=== PATIENT | female | born 1990 | race Caucasian/White ===

== ENCOUNTER 2020-10-08 08:51 | Outpatient (REF) | payer OTHER, SELFPAY | END 2020-10-08 08:52 | disposition home or self-care (01) | LOC: HO.LAB 08:51 | PROVIDERS: Visit Provider Internal Medicine | DX: Z20.828 Contact with and (suspected) exposure to other viral communicable diseases (principal) | CPT/HCPCS: C9803; U0003 ==

== ENCOUNTER 2020-11-12 15:59 | Emergency (ER) | payer OTHER, SELFPAY ==
--- NOTE | 2020-11-12 16:49 | XR_ITS ---
EXAMINATION: XR WRIST, RIGHT CLINICAL INFORMATION: Pain, fall COMPARISON: None TECHNIQUE: 4 views submitted of the right wrist. FINDINGS: No fracture or dislocation. XR/XR wrist RT min 3V IMPRESSION: No fracture or dislocation right wrist.
[2020-11-12 16:51] VITALS: BP 126/76; PULSE 86; RESP 14; TEMP 37.2; O2SAT 97; BMI 28.3
--- NOTE | 2020-11-12 17:00 | ED.EXTPRO ---
HPI - Extremity Problem General Chief complaint: Extremity Injury, Upper Stated complaint: Wrist pain/Fall Time Seen by Provider: 11/12/20 16:57 Source: patient Mode of arrival: ambulatory Limitations: no limitations History of Present Illness HPI Narrative: 30-year-old female with no significant past medical history presents with right wrist pain for approximately 1 week after fall on outstretched arm. She states that she has been using [id number] analgesics but the pain continues. She does not have any concerns regarding range of motion and is able to move all of her fingers without difficulty. Not have any other concerns at this time, does not describe any pain in the elbow or shoulder of the affected arm. MD Complaint: extremity pain and extremity swelling Onset (ago): week(s) (1) Pain Consistency: constant Location: right Severity scale (1-10): 5 Quality: aching Radiation: none Relieving factors: nothing Exacerbating factors: range of motion Associated symptoms: denies other symptoms Related Data Allergies Allergy/AdvReac Type Severity Reaction Status Date / Time banana [BANANA] Allergy Severe ANAPHYLAXIS Unverified 07/08/20 18:20 cantaloupe [CANTALOUPE] Allergy Severe HIVES Unverified 07/08/20 18:20 ketorolac [From TORADOL] Allergy Intermediate HIVES Unverified 07/08/20 18:20 latex [LATEX] Allergy Mild HIVES Unverified 07/08/20 18:20 peach [PEACH] Allergy Mild HIVES Unverified 07/08/20 18:20 plum [PLUM] Allergy Mild HIVES Unverified 07/08/20 18:20 Review of Systems Review of Systems: Constitutional: No Fever, No Chills ENT/Mouth: No Ear Pain, No Hoarseness, No sore throat Eyes: No Eye Pain, No Swelling, No Redness, No Foreign Body Cardiovascular: No Chest Pain, No SOB Respiratory: No Cough, No Dyspnea Gastrointestinal: No Nausea, No Vomiting, No Diarrhea, No abdominal Pain Genitourinary: No Dysuria, No Hematuria Musculoskeletal: positive right wrist pain, No Myalgias, No Joint Swelling Skin: No Skin lacerations, No rash Neuro: No Weakness, No Numbness, No Paresthesias, No Loss of Consciousness, No Dizziness, No Headache Psych: No Anxiety/Panic, No Depression Heme/Lymph: no easy bruising, no Lymphadenopathy Endocrine: No Polyuria, No Polydipsia Yes all other systems are reviewed and are negative FOR[facility]LY [facility] Past Medical History Attestation statement: The following information was validated with the patient. Medical History Asthma Surgical History Previous section Social History Social History Advance Directives: No Advance Directives Information Provided: Yes Physical Exam Vital Signs: Vital Signs: Last Vital Signs Temp 98.9 F 11/12/20 16:51 Pulse 86 11/12/20 16:51 Resp 14 11/12/20 16:51 BP 126/76 11/12/20 16:51 Pulse Ox 97 11/12/20 16:51 Body Mass Index 28.3 Appearance: Alert. Oriented X3. No acute distress. Eyes: Pupils equal, round and reactive to light. ENT: Pharynx normal. Neck: Normal inspection. Neck supple. CVS: Normal heart rate and rhythm. Pulses normal. Respiratory: No respiratory distress. Breath sounds normal. Abdomen: Soft and nontender. Skin: Skin warm and dry. Normal skin color. Normal skin turgor. Extremities: No lower extremity edema. Neuro: No motor deficit. No sensory deficit. Course Course Course Narrative: 30-year-old female presents with right wrist injury after a slip and fall incident that occurred 1 week ago. She does have full range of motion to her extremity and digits, brisk capillary refill, and equal pulses. No sensory or neural deficits noted. Plan of care is for right wrist x-ray. Right wrist for x-rays are negative for acute findings, plan of care is for splint and for patient to follow-up with orthopedics. Patient verbalized understanding of and agrees to plan of care discharge home. MDM - Extremity (Nontraumatic) MDM Narrative Medical decision making narrative: Fracture, sprain, dislocation Medical Records Attestation: I reviewed the patient's medical records. Imaging Data Right wrist x-ray: Attestation: I personally reviewed and interpreted this imaging study as follows: Radiologist's impression: EXAMINATION: XR WRIST, RIGHT CLINICAL INFORMATION: Pain, fall COMPARISON: None TECHNIQUE: 4 views submitted of the right wrist. FINDINGS: No fracture or dislocation. XR/XR wrist RT min 3V IMPRESSION: No fracture or dislocation right wrist. Discharge Plan Discharge Clinical Impression: Sprain and strain of wrist Patient Disposition: Home, Self-Care Instructions: Wrist Sprain (ED) Additional Instructions: You were evaluated for right wrist pain after a slip and fall 1 week ago. Your x-rays are negative for acute findings or fracture. You could have a ligament or tendon injury consistent with a wrist sprain. Please wear cock-up splint as needed, use ice and elevation to help reduce pain and swelling. Continue to use Tylenol and Motrin as needed for pain management. Please consider following up with Orthopedics and/or primary care physician for further evaluation. I have referred you to orthopedics, you may call make an appointment if symptoms persist. Thank you for choosing this emergency department for evaluation. Please follow-up with primary care physician as needed. Return to the emergency department for any new, concerning, or worsening symptoms. Referrals: Jayant Fuentes MD [Physician] - 2 days (Right wrist sprain) Interventions: ED Discharge Assessment Last Done: 11/12/20 17:48 Discharge Date/Time: 11/12/20 17:51
== END 2020-11-12 17:51 | disposition home or self-care (01) ==
PROVIDERS: Emergency Provider Emergency Medicine; PCP Internal Medicine
DX: S63.501A Unspecified sprain of right wrist, initial encounter (principal); S66.911A Strain of unspecified muscle, fascia and tendon at wrist and hand level, right hand, initial encounter; W01.0XXA Fall on same level from slipping, tripping and stumbling without subsequent striking against object, initial encounter; Y93.9 Activity, unspecified; Y92.9 Unspecified place or not applicable; Y99.9 Unspecified external cause status
CPT/HCPCS: 73110; 99283; 99284

== ENCOUNTER 2021-04-20 08:30 | Outpatient (REF) | payer OTHER, SELFPAY ==
[2021-04-20 16:13] LABS: CT PCR NOT DETECTED (Not Detect.); NG PCR NOT DETECTED (Not Detect.)
== END 2021-04-20 08:31 | disposition home or self-care (01) ==
LOC: HO.LAB 08:30
PROVIDERS: PCP Internal Medicine; Visit Provider Advanced Practice Midwife
DX: Z01.419 Encounter for gynecological examination (general) (routine) without abnormal findings (principal); Z11.3 Encounter for screening for infections with a predominantly sexual mode of transmission; Z20.2 Contact with and (suspected) exposure to infections with a predominantly sexual mode of transmission
CPT/HCPCS: 87491; 87591; 88142

== ENCOUNTER 2021-10-03 17:28 | Emergency (ER) | payer OTHER, SELFPAY ==
--- NOTE | ~2021-10-03 | XR_ITS ---
EXAMINATION: XR ABDOMEN KUB CLINICAL INFORMATION: Abdominal cramping. COMPARISON: Renal ultrasound dated 03/05/2019. TECHNIQUE: AP views of the abdomen. FINDINGS: No radiopaque renal stone. Nonobstructive bowel gas pattern. Mild air and stool throughout the colon. No acute osseous abnormality. XR/XR KUB IMPRESSION: Unremarkable examination.
[2021-10-03 19:12] VITALS: BP 141/93; PULSE 88; RESP 18; TEMP 36.9; O2SAT 95; BMI 33.0
[2021-10-03] MEDS: Ondansetron ODT 4 MG TAB.RAPDIS TRANSLINGU (19:16)
[2021-10-03 21:12] LABS: Basophils Percent Auto 0.3 % (0-2); Eosinophils Absolute Auto 0.9 X10*3/uL (0.0-0.4); Eosinophils Percent Auto 8.7 % (0-4); Hematocrit 40.1 % (37.0-47.0); Hemoglobin 13.8 g/dl (12.0-16.0); Imm Gran Abs Auto 0.02 X10*3/uL (0.00-0.03); Imm Gran Pct Auto 0.2 % (0.0-0.4); Lymphocytes Absolute Auto 1.3 X10*3/uL (1.2-4.9); Lymphocytes Percent Auto 13.5 % (20-40); MANUAL DIFF FLAG NO; Mean Corpuscular HGB Conc 34.4 g/dl (31.0-35.0); Mean Corpuscular Hemoglobin 32.9 pg (27.0-33.0); Mean Corpuscular Volume 95.7 fL (80.0-98.0); Mean Platelet Volume 9.5 fL (9.4-12.3); Monocytes Absolute Auto 0.6 X10*3/uL (0.1-1.2); Monocytes Percent Auto 5.8 % (2-11); Neutrophils Percent Auto 71.5 % (45-73); Platelet Count 269 X10*3/uL (160-400); Red Blood Count 4.19 X10*6/uL (4.20-5.50); Red Cell Distribution Width 10.9 % (11.0-16.0); White Blood Count 9.9 X10*3/uL (4.8-10.8)
[2021-10-03 21:24] LABS: Appearance Urine CLEAR; Color Urine YELLOW; Glucose Urine UA NEG (NEG); Leukocyte Esterase Urine NEG (NEG); Nitrite Urine NEG (NEG); Specific Gravity - Urine 1.025 (1.005-1.025); Urine Blood NEG (NEG); Urine Ketones NEG (NEG); Urine Protein NEG (NEG-TRACE)
[2021-10-03 21:33] LABS: Alanine Aminotransferase 21 U/L (0-31); Albumin Level 4.5 g/dL (3.5-5.0); Alkaline Phosphatase 70 U/L (39-117); Anion Gap 13 (12-20); Aspartate Amino Transferase 18 U/L (5-31); Bilirubin Total 0.8 mg/dL (0.0-1.0); Blood Urea Nitrogen 9 mg/dL (9-16); Calcium 9.5 mg/dL (8.4-10.2); Carbon Dioxide 20 mmol/L (22-29); Chloride 109 mmol/L (96-108); Creatinine Clr Calc Pharmacy 116.5; Estimated Glomerular Filt Rate > 60; Glucose Random 78 mg/dL (60-115); Potassium 3.8 mmol/L (3.3-5.1); Sodium 138 mmol/L (135-145); Total Protein 7.5 g/dL (6.5-8.0)
--- NOTE | 2021-10-03 21:55 | ED.ABDPAIN ---
HPI - Abdominal Pain General Chief Complaint: Abdominal Pain Stated Complaint: Cholitis flare Time Seen by Provider: 10/03/21 21:54 Source: patient Mode of arrival: ambulatory History of Present Illness HPI narrative: 31-year-old female with history colitis . Followed by Dr. Corea but having difficulty obtaining an appointment and patient states she has had crampy abdominal pain for the past 3 weeks that is intermittently been associated with some nausea but denies any fever, chills, urinary pain/burning/frequency. Patient states that she developed some gas and bloating at times and that the Bentyl that she has been prescribed has not always been effective in resolving her symptoms. She has been COVID-19 vaccinated. Related Data Allergies Allergy/AdvReac Type Severity Reaction Status Date / Time banana [BANANA] Allergy Severe ANAPHYLAXIS Verified 10/03/21 19:12 cantaloupe [CANTALOUPE] Allergy Severe HIVES Verified 10/03/21 19:12 ketorolac [From TORADOL] Allergy Intermediate HIVES Verified 10/03/21 19:12 latex [LATEX] Allergy Mild HIVES Verified 10/03/21 19:12 peach [PEACH] Allergy Mild HIVES Verified 10/03/21 19:12 plum [PLUM] Allergy Mild HIVES Verified 10/03/21 19:12 Review of Systems Review of Systems Pertinent positives and negatives as stated in HPI 10 point review of systems is otherwise negative. Physical Exam Vital Signs: Vital Signs: Last Vital Signs Temp 98.5 F 10/03/21 19:12 Pulse 88 10/03/21 19:12 Resp 18 10/03/21 19:12 BP 141/93 H 10/03/21 19:12 Pulse Ox 95 10/03/21 19:12 BMI result Body Mass Index 33.0 VITAL SIGNS: Reviewed. GENERAL: Well developed, well nourished, in no acute distress. HEAD: Normocephalic/atraumatic, EYES: PERRLA, EOMI OROPHARYNX: no oral lesions noted, posterior pharynx clear NECK: Supple, no adenopathy LUNGS: Normal breath sounds. No adventitious sounds or accessory muscle use. SpO2<95> CARDIOVASCULAR: Regular rate and rhythm without noted murmurs ABDOMEN: Soft, non-tender, non-distended with bowel sounds. NEUROLOGIC: Alert and oriented x 4. Strength and sensation to light touch were grossly intact x 4. Course Course Course Narrative: 31-year-old female with history and clinical presentation consistent with most likely IBS type symptoms review of all investigations negative for acute findings to suggest infectious etiology. Results were shared with the patient at bedside and will pursue a KUB at this time, patient is currently asymptomatic for pain at this time. Review of all investigations without significant findings and this was communicated with the patient at bedside. She remains asymptomatic of pain and was recommended to continue with the Bentyl as well as utilizing simethicone and [id number] analgesics such as Tylenol and ibuprofen. MDM - Abdominal Pain Lab Data Result diagrams: 10/03/21 21:06 10/03/21 21:06 Labs: Lab Results 10/03/21 10/03/21 10/03/21 Range/Units 21:06 21:06 21:10 WBC 9.9 (4.8-10.8) X10*3/uL RBC 4.19 L (4.20-5.50) X10*6/uL Hgb 13.8 (12.0-16.0) g/dl Hct 40.1 (37.0-47.0) % MCV 95.7 (80.0-98.0) fL MCH 32.9 (27.0-33.0) pg MCHC 34.4 (31.0-35.0) g/dl RDW 10.9 L (11.0-16.0) % Plt Count 269 (160-400) X10*3/uL MPV 9.5 (9.4-12.3) fL Immature Gran % (Auto) 0.2 (0.0-0.4) % Neut % (Auto) 71.5 (45-73) % Lymph % (Auto) 13.5 L (20-40) % [place] % (Auto) 5.8 (2-11) % Eos % (Auto) 8.7 H (0-4) % Baso % (Auto) 0.3 (0-2) % Lymph # (Auto) 1.3 (1.2-4.9) X10*3/uL [place] # (Auto) 0.6 (0.1-1.2) X10*3/uL Eos # (Auto) 0.9 H (0.0-0.4) X10*3/uL Baso # (Auto) 0.0 (0.0-0.2) X10*3/uL Abs Immat Gran (auto) 0.02 (0.00-0.03) X10*3/uL Absolute Neuts (auto) 7.0 (2.0-8.3) x10*3/uL Absolute Nucleated RBC 0.000 (0.0-0.012) X10*3/uL Nucleated RBC % (auto) 0.0 (0.0-0.2) /100WBC Sodium 138 (135-145) mmol/L Potassium 3.8 (3.3-5.1) mmol/L Chloride 109 H (96-108) mmol/L Carbon Dioxide 20 L (22-29) mmol/L Anion Gap 13 (12-20) BUN 9 (9-16) mg/dL Creatinine 0.68 (0.5-1.4) mg/dL Estim Creat Clear Calc 116.5 Estimated GFR > 60 Random Glucose 78 (60-115) mg/dL Calcium 9.5 (8.4-10.2) mg/dL Total Bilirubin 0.8 (0.0-1.0) mg/dL AST 18 (5-31) U/L ALT 21 (0-31) U/L Alkaline Phosphatase 70 (39-117) U/L Total Protein 7.5 (6.5-8.0) g/dL Albumin 4.5 (3.5-5.0) g/dL Urine Color YELLOW Urine Appearance CLEAR Urine pH 6.0 (5.0-8.0) Ur Specific [place] 1.025 (1.005-1.025) Urine Protein NEG (NEG-TRACE) MG/DL Urine Glucose (UA) NEG (NEG) MG/DL Urine Ketones NEG (NEG) MG/DL Urine Blood NEG (NEG) Urine Nitrite NEG (NEG) Ur Leukocyte Esterase NEG (NEG) Discharge Plan Discharge Clinical Impression: Abdominal cramping Patient Disposition: Home, Self-Care Instructions: Abdominal Pain (ED), Gas and Bloating (ED) Additional Instructions: 1. Recommending resuming the Bentyl as prescribed. In addition, consider adding in simethicone as well as combination analgesics such as Tylenol and ibuprofen for additional pain relief. 2. You have been provided with a referral below and should call tomorrow morning. Return to the ER for worsening symptoms. Referrals: Loretta Larkin MD [Primary Care Provider] - 2 days ( Abdominal cramping for 3 weeks, negative workup here in the ER and provided with a GI referral.) Isaac Rangel MD [Physician] - 2 days ( Patient with abdominal cramping for 3 weeks, negative workup here in the emergency room, followed by Dr. Corea, currently on Bentyl. Suspect IBS, low clinical suspicion for IBD.) Stand Alone Forms: Work/School Release PMFSH Past Medical History Source: nursing notes reviewed Medical History Asthma Colitis Surgical History Previous section Social History Social History Advance Directives: No Advance Directives Information Provided: No Patient : No
[2021-10-03 23:37] VITALS: BP 132/68; PULSE 74; RESP 18; O2SAT 98
== END 2021-10-03 23:38 | disposition home or self-care (01) ==
PROVIDERS: Emergency Provider Student in an Organized Health Care Education/Training Program; PCP Internal Medicine
DX: R10.9 Unspecified abdominal pain (principal)
CPT/HCPCS: 36415; 74018; 80053; 81003; 85025; 99283; 99284

== ENCOUNTER 2022-02-06 15:52 | Outpatient (REF) | payer OTHER, SELFPAY ==
[2022-02-06 16:09] LABS: MANUAL DIFF FLAG NO
[2022-02-06 16:41] LABS: Basophils Percent Auto 0.4 % (0-2); Eosinophils Absolute Auto 1.1 X10*3/uL (0.0-0.4); Eosinophils Percent Auto 11.3 % (0-4); Hematocrit 39.1 % (37.0-47.0); Hemoglobin 13.4 g/dl (12.0-16.0); Imm Gran Abs Auto 0.04 X10*3/uL (0.00-0.03); Imm Gran Pct Auto 0.4 % (0.0-0.4); Lymphocytes Absolute Auto 2.1 X10*3/uL (1.2-4.9); Lymphocytes Percent Auto 22.1 % (20-40); Mean Corpuscular HGB Conc 34.3 g/dl (31.0-35.0); Mean Corpuscular Hemoglobin 32.2 pg (27.0-33.0); Mean Platelet Volume 9.7 fL (9.4-12.3); Monocytes Absolute Auto 0.7 X10*3/uL (0.1-1.2); Monocytes Percent Auto 7.6 % (2-11); Neutrophils Absolute Auto 5.4 x10*3/uL (2.0-8.3); Neutrophils Percent Auto 58.2 % (45-73); Platelet Count 304 X10*3/uL (160-400); Red Blood Count 4.16 X10*6/uL (4.20-5.50); White Blood Count 9.3 X10*3/uL (4.8-10.8)
[2022-02-06 16:52] LABS: Estimated Average Glucose 77 mg/dL; Hemoglobin A1c % 4.3 %
[2022-02-06 17:21] LABS: Alanine Aminotransferase 21 U/L (0-31); Albumin Level 4.4 g/dL (3.5-5.0); Alkaline Phosphatase 67 U/L (39-117); Anion Gap 12 (12-20); Aspartate Amino Transferase 18 U/L (5-31); Bilirubin Total 0.7 mg/dL (0.0-1.0); Blood Urea Nitrogen 15 mg/dL (9-16); Calcium 9.9 mg/dL (8.4-10.2); Carbon Dioxide 24 mmol/L (22-29); Chloride 106 mmol/L (96-108); Estimated Glomerular Filt Rate > 60; Glucose Random 66 mg/dL (60-115); Sodium 138 mmol/L (135-145); Total Protein 7.4 g/dL (6.5-8.0)
== END 2022-02-06 15:53 | disposition home or self-care (01) ==
LOC: HO.LAB 15:52
PROVIDERS: PCP Internal Medicine; Visit Provider Internal Medicine
DX: F32.5 Major depressive disorder, single episode, in full remission (principal); J45.909 Unspecified asthma, uncomplicated; L20.89 Other atopic dermatitis; R63.5 Abnormal weight gain
CPT/HCPCS: 36415; 80053; 83036; 85025

== ENCOUNTER 2022-09-14 00:30 | Emergency (ER) | payer OTHER, SELFPAY ==
[2022-09-14 00:32] VITALS: BP 113/71; PULSE 103; RESP 18; TEMP 36.3; O2SAT 97; BMI 36.2
--- NOTE | 2022-09-14 00:40 | ED.ASTHMA ---
HPI - Asthma General Chief Complaint: Asthma Stated Complaint: asthma Time Seen by Provider: 09/14/22 00:39 Source: patient Mode of arrival: ambulatory Limitations: no limitations History of Present Illness HPI Narrative: Patient 36 weeks with history of asthma allergy to smoke neighbor was smoking and patient felt short of breath earlier today with wheezing tried her inhaler without much response has dry cough no fever as my nasal congestion nobody else sick at home no chest pain or palpitation Related Data Previous Rx's Medication Instructions Recorded albuterol sulfate 90 mcg/actuation 2 puff inhalation Q4-6H PRN 09/14/22 aerosol inhaler (ProAir HFA) shortness of breath or wheezing #8.5 grams oseltamivir 75 mg capsule (Tamiflu) 75 mg PO BID 5 days #10 caps 09/14/22 prednisone 20 mg tablet 40 mg PO DAILY #10 tabs 09/14/22 Allergies Allergy/AdvReac Type Severity Reaction Status Date / Time banana [BANANA] Allergy Severe ANAPHYLAXIS Verified 10/03/21 19:12 cantaloupe [CANTALOUPE] Allergy Severe HIVES Verified 10/03/21 19:12 ketorolac [From TORADOL] Allergy Intermediate HIVES Verified 10/03/21 19:12 latex [LATEX] Allergy Mild HIVES Verified 10/03/21 19:12 peach [PEACH] Allergy Mild HIVES Verified 10/03/21 19:12 plum [PLUM] Allergy Mild HIVES Verified 10/03/21 19:12 Review of Systems Review of Systems: Yes all other systems are reviewed and are negative PMFSH Past Medical History Medical History Asthma Colitis Surgical History Previous section Social History Social History Alcohol intake: never Smoked in Last 30 Days: No Use of substances other than those prescribed or required for medical reasons: No Advance Directives: No Advance Directives Information Provided: Yes Patient : Yes Physical Exam Vital Signs: Vital Signs: Last Vital Signs Temp 98.3 F 09/14/22 00:59 Pulse 106 H 09/14/22 01:19 Resp 22 H 09/14/22 01:19 BP 107/67 11/24/22 00:59 Pulse Ox 96 09/14/22 00:59 O2 Del Method 09/14/22 00:59 BMI result Body Mass Index 36.2 Appearance: Alert. Oriented X3. No acute distress. ENT: Pharynx normal. Oral Mucosa moist Neck: Normal inspection. Neck supple. CVS: Normal heart rate and rhythm. Pulses normal. Respiratory: No respiratory distress. Equal air entry bilateral, bilateral rhonchi and wheezing Abdomen: Soft and nontender. Bowel sounds are present, gravid uterus Skin: Skin warm and dry. Normal skin color. Normal skin turgor. Extremities: No lower extremity edema. No calf tenderness Neuro: Oriented X 3. Medications Administered Discontinued Medications Generic Name Dose Route Start Last Admin Trade Name Freq PRN Reason Stop Dose Admin Albuterol Sulfate 2.5 mg/ 0 mg 09/14/22 00:43 09/14/22 01:03 Albuterol/Ipratropium 3 ml INHALE 09/14/22 00:44 1 each ONCE ONE Administration Prednisone 40 mg 09/14/22 00:43 09/14/22 01:04 Prednisone 20 Mg Tablet PO 09/14/22 00:44 40 mg ONCE ONE Administration MDM - Asthma MDM Narrative Medical decision making narrative: Patient has asthma influenza a positive saturating 96% on room air discharge patient home on prednisone albuterol inhaler and Tamiflu Lab Data Attestation: I reviewed the patient's lab results. Labs: Lab Results 09/14/22 Range/Units 00:55 Influenza Type A (PCR) POSITIVE A (Negative) Influenza Type B (PCR) NEGATIVE (Negative) RSV RNA Qual (PCR) NEGATIVE (Negative) SARS-CoV-2 RNA (RT-PCR) NEGATIVE (Negative) Discharge Plan Discharge Clinical Impression: Influenza A Patient Disposition: Home, Self-Care Instructions: Influenza (ED) Additional Instructions: Keep hydrated Tylenol for fever/pain Use albuterol inhaler for asthma Prednisone as advised Take Tamiflu for 5 days as prescribed Prescriptions: New albuterol sulfate [ProAir HFA] 90 mcg/actuation HFA aerosol inhaler 2 puff inhalation Q4-6H PRN (Reason: shortness of breath or wheezing) Qty: 8.5 0RF prednisone 20 mg tablet 40 mg PO DAILY Qty: 10 0RF oseltamivir [Tamiflu] 75 mg capsule 75 mg PO BID 5 Days Qty: 10 0RF
[2022-09-14 00:59] VITALS: BP 107/67; PULSE 106; RESP 22; TEMP 36.8; O2SAT 96
[2022-09-14] MEDS: Albuterol Sulfate 2.5 MG, Albuterol/Iprat 2.5/0.5MG 3 ML 3 ML INHALE (01:03)
[2022-09-14] MEDS: predniSONE 20 MG TABLET 40 MG PO (01:04)
[2022-09-14 01:19] VITALS: PULSE 106; RESP 22; O2SAT 95
[2022-09-14 01:35] LABS: Influenza A PCR POSITIVE (Negative); Influenza B PCR NEGATIVE (Negative); Resp Syncy Virus RNA Qual PCR NEGATIVE (Negative); SARS COV2 PCR INHOUSE NEGATIVE (Negative)
--- OUTSIDE RECORDS SUMMARY | 2022-09-14 01:41 | XMS_ITS | Continuity of Care Document ---
:1990 Author Organization [facility] Address [address] [place] [address]- Care Team Providers Name Role Phone Loretta Larkin MD Primary Care Physician Encounter [facility] [place] Date(s): 07/22/20 - 07/22/[address] [address]- [facility] Encounter Diagnosis Asthma exacerbation (Final) - 07/22/20 Seasonal allergies (Final) - 07/22/20 Viral syndrome (Final) - 07/22/20 Discharge Disposition: A-D/C Home Attending Physician: Meng Esqiuvel MD Admitting Physician: Meng Esquivel MD Referring Physician: Not on Staff, Referring MD Allergies, Adverse Reactions, Alerts Substance Reaction Severity Status Toradol Active Other Food Allergy1 Active 1cantelope, bananas Medications Albuterol (Eqv-ProAir HFA) 2 puffs, Inhalation, Every 6 hours, 0 Refills, Maintenance, 07/22/20 20:55:00 EDT Start Date: 07/22/20 Status: Orderedcetirizine 10 mg oral tablet 1 tablet = 10 mg, By Mouth, Daily, # 90 tablet, 0 Refills, Maintenance, 07/22/20 22:50:00 EDT, Tablet, [id number] Start Date: 07/22/20 Status: OrderedpredniSONE 20 mg oral tablet 2 tablet = 40 mg, By Mouth, Daily, for 3 days, # 6 tablet, 0 Refills, Acute 07/25/20 22:48:00 EDT, 07/22/20 22:48:00 EDT, Tablet, [id number] Start Date: 07/22/20 Stop Date: 07/25/20 Status: OrderedPulmicort Flexhaler 90 mcg 2 puffs, Inhalation, 2 times a day, # 1 each, 0 Refills, Maintenance, 07/22/20 22:49:00 EDT, Powder,[id number], 2 puffs Inhalation 2 times a day Start Date: 07/22/20 Status: Ordered Results Radiology Reports Exam Date Time Procedure Performing Provider Status 07/22/20 10:23 PM Chest Portable Barbara Quintero; Auth (Verified ) Notes:(Chest Portable) Reason For Exam: CoughRESULT: Chest Portable Chest Portable Hx of Present Illness: congestion and cough x2 weeks, hx asthma, using albuterol inhaler, 20-30 puffs of albuterol inhaler, called PCP and was told it's a cold; Reason: Cough; Clinical Question(s): Asthma COMPARISON: None. FINDINGS: LINES AND TUBES: None. LUNGS AND PLEURA: Clear lungs. Normal pulmonary vascularity. No pleural effusion. No pneumothorax. HEART, MEDIASTINUM AND RIVKA: Heart is normal in size. Normal mediastinal and hilar contour. BONES AND SOFT TISSUES: No acute abnormality. IMPRESSION: No acute abnormality. WSN: [id number] Ordering Physician: Natanael Victoria Dictated By: Eris Jefferson MD Dictated Date/Time: 07/22/20 10:28 p Reviewed By: Eris Jefferson MD Signed By: Eris Jefferson MD Signed Date/Time: 07/22/20 10:28 pm Transcribed By: RAMAN Transcribed Date/Time: 07/22/20 10:28 pm Vital Signs Most recent to oldest 1 2 3 [Reference Range]: Oxygen Saturation [94-100 %] 97 % 97 % 97 % (07/22/20 11:10 PM) (07/22/20 10:42 PM) (07/22/20 8 :52 PM) Pulse Rate [55-90 bpm] 76 bpm 75 bpm 88 bpm (07/22/20 11:10 PM) (07/22/20 10:42 PM) (07/22/20 8 :52 PM) Blood Pressure [90-138/55-84 106/61 mm Hg 112/88 mm Hg mm Hg] (07/22/20 11:10 PM) (07/22/20 8:52 PM) Respiratory Rate [16-30 20 br/min 20 br/min br/min] (07/22/20 11:10 PM) (07/22/20 8:52 PM) Temperature [96.8-100.4 DegF] 97.5 DegF 98 DegF (07/22/20 11:10 PM) (07/22/20 8:52 PM) Mode of Delivery (Oxygen) Room air Room air Room a ir (07/22/20 11:10 PM) (07/22/20 10:42 PM) (07/22/20 8 :52 PM) Temperature Route Oral Oral (07/22/20 11:10 PM) (07/22/20 8:52 PM)
== END 2022-09-14 02:05 | disposition home or self-care (01) ==
PROVIDERS: Emergency Provider Internal Medicine; PCP Internal Medicine
DX: O98.513 Other viral diseases complicating pregnancy, third trimester (principal); J11.1 Influenza due to unidentified influenza virus with other respiratory manifestations; Z3A.36 36 weeks gestation of pregnancy; Z20.822 Contact with and (suspected) exposure to COVID-19
CPT/HCPCS: 0241U; 94640; 99284

== ENCOUNTER → 2023-03-07 15:32 | Outpatient (BNVA) | payer OTHER, SELFPAY | PROVIDERS: PCP Internal Medicine; Visit Provider Physician Assistant Surgical ==

== ENCOUNTER 2023-05-07 16:47 | Outpatient (REF) | payer OTHER, SELFPAY ==
[2023-05-07 16:56] LABS: MANUAL DIFF FLAG NO
[2023-05-07 17:55] LABS: Basophils Percent Auto 0.4 % (0-2); Eosinophils Absolute Auto 0.8 X10*3/uL (0.0-0.4); Eosinophils Percent Auto 9.1 % (0-4); Hematocrit 39.9 % (37.0-47.0); Hemoglobin 13.9 g/dl (12.0-16.0); Imm Gran Abs Auto 0.02 X10*3/uL (0.00-0.03); Imm Gran Pct Auto 0.2 % (0.0-0.4); Lymphocytes Absolute Auto 2.2 X10*3/uL (1.2-4.9); Lymphocytes Percent Auto 27.2 % (20-40); Mean Corpuscular HGB Conc 34.8 g/dl (31.0-35.0); Mean Corpuscular Volume 94.8 fL (80.0-98.0); Mean Platelet Volume 10.3 fL (9.4-12.3); Monocytes Absolute Auto 0.5 X10*3/uL (0.1-1.2); Monocytes Percent Auto 5.8 % (2-11); Neutrophils Absolute Auto 4.7 x10*3/uL (2.0-8.3); Neutrophils Percent Auto 57.3 % (45-73); Platelet Count 283 X10*3/uL (160-400); Red Blood Count 4.21 X10*6/uL (4.20-5.50); Red Cell Distribution Width 11.2 % (11.0-16.0); White Blood Count 8.2 X10*3/uL (4.8-10.8)
[2023-05-07 18:33] LABS: Alanine Aminotransferase 23 U/L (0-31); Albumin Level 4.9 g/dL (3.5-5.0); Alkaline Phosphatase 52 U/L (39-117); Anion Gap 13 (12-20); Aspartate Amino Transferase 17 U/L (5-31); Bilirubin Total 0.7 mg/dL (0.0-1.0); Blood Urea Nitrogen 18 mg/dL (9-16); Calcium 10.1 mg/dL (8.4-10.2); Carbon Dioxide 23 mmol/L (22-29); Chloride 107 mmol/L (96-108); Cholesterol 138 mg/dL; Estimated Glomerular Filt Rate > 60; Glucose Random 83 mg/dL (60-115); HDL Cholesterol 37 mg/dL; LDL Cholesterol Calculated 68 mg/dl; Potassium 3.3 mmol/L (3.3-5.1); Sodium 140 mmol/L (135-145); Total Protein 8.1 g/dL (6.5-8.0); Triglycerides 169 mg/dL
== END 2023-05-07 16:48 | disposition home or self-care (01) ==
LOC: HO.LAB 16:47
PROVIDERS: PCP Internal Medicine; Visit Provider Internal Medicine
DX: Z00.00 Encounter for general adult medical examination without abnormal findings (principal); F32.5 Major depressive disorder, single episode, in full remission
CPT/HCPCS: 36415; 80053; 80061; 85025

== ENCOUNTER 2023-05-23 15:26 | Outpatient (AMB) | payer OTHER, SELFPAY ==
--- NOTE | 2023-05-23 15:30 | MHC.OFFVISWM ---
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[facility] Allergies banana [BANANA] Allergy (Severe, Verified 05/23/23 15:33) ANAPHYLAXIS cantaloupe [CANTALOUPE] Allergy (Severe, Verified 05/23/23 15:33) HIVES ketorolac [From TORADOL] Allergy (Intermediate, Verified 05/23/23 15:33) HIVES latex [LATEX] Allergy (Mild, Verified 05/23/23 15:33) HIVES peach [PEACH] Allergy (Mild, Verified 05/23/23 15:33) HIVES plum [PLUM] Allergy (Mild, Verified 05/23/23 15:33) HIVES Medication List - Last Reconciled 05/23/23 by DOMINICK Meneses albuterol sulfate 90 mcg/actuation (ProAir HFA) 2 puffs inhalation Q4-6H PRN etonogestrel (Nexplanon) subdermal HPI HPI Comments History of Present Illness Details Pt is here to start the [facility] [place] [facility]. Her goal is to lose weight and achieve a healthy lifestyle as well as to improve, if not resolve, obesity related medical conditions. Highest weight to date was 195. Current weight is 173.8 with a BMI of 33.9.? She has tried multiple methods of weight loss including liquid diet, diet pills without permanent results. She lives with 4 kids and , plus her brother. She works 5 days per week, plus overtime as a [employer], 7-3am and sometimes picks up 3-11 shifts. She wakes at: 4am, and goes to bed at 8pm.? Dinner is at 5 or 5:30pm. Breakfast: 1 scoop [id number] Dymatize protein, 25g (120 delfin) in 8oz oatmilk before gym AM snack: Janeen; chorizo wrap plus coffee, salted caramel cold brew (240cal) Lunch: 11am- white rice and veggie blend; sometimes will add 2-3 garlic chicken tenders from [employer], sometimes [place] [employer] sprouts PM snack: none Dinner: chicken breast baked in oven, white rice and beans, rare pasta After dinner: none Other snacks: [employer] at work Liquids: coffee as above, rare juice- 1-2x/week Alcohol/marijuana/tobacco intake: no marijuana or cannabis, social EtOH Exercise: goes to [employer] [facility] in [place], recently started this; tries to go 6x/week at 4:30am, uses the [employer] minna which gives a combination of strength, cardio; each workout is 1 hour long GERD score: 0 NONA score: 2 ESS score: 16 QOL score: 88 PFSH Medical History (Updated 05/23/23 @ 15:41 by DOMINICK Meneses) Asthma Colitis Surgical History (Updated 03/07/23 @ 15:47 by ROLY Stevenson) Hx of breast augmentation Hx of colonoscopy Previous section Family History Mother Hypertension Father Asthma Brother No problems noted. Brother No problems noted. Son No problems noted. Son No problems noted. Son Asthma Autism Daughter ADHD Social History (Updated 03/07/23 @ 15:47 by ROLY Stevenson) Alcohol intake: current Alcohol intake frequency: holidays/special occasions only Patient Tobacco Use Status: Never used Tobacco Physical Exam Const General: cooperative, comfortable and no acute distress Resp Effort & Inspection: normal respiratory effort Auscultation: clear to auscultation bilaterally Cardio Rate: regular rate Rhythm: regular rhythm GI Other: soft, nontender, nondistended, no hernias or masses, +BS Extrem General: Yes no calf tenderness and No edema Assessment & Plan Assessment & Plan (1) Anxiety and depression: Code(s): F41.9 - Anxiety disorder, unspecified; F32.A - Depression, unspecified (2) Ulcerative colitis: Code(s): K51.90 - Ulcerative colitis, unspecified, without complications (3) Asthma: Code(s): J45.909 - Unspecified asthma, uncomplicated (4) Obesity: Code(s): E66.9 - Obesity, unspecified Plan This is a 35 yo female seen in consultation for [facility] program.? ? Adequate sleep of 7-8 hours per night discussed. ?? Pt will purchase body composition analyzer scale (Felicia Wahl recommended) and check weight weekly. The best time to do this is first thing in the morning after going to the bathroom. 1. Nutritional counseling. Preworkout: HALF scoop [id number] powder in 8oz unsweetend almond milk Breakfast postworkout: Kinyarwanda yogurt cup, can add berries; another option would be a protein bar Lunch: 6 forks/3 oz of protein and up to 16 forks/8 oz of salad/vegetables; can also have a shake with a full scoop of powder in 8oz unsweetened almond milk Dinner: 6 forks/3 oz of protein and up to 16 forks/8 oz of salad/vegetables Meal to include lean meat (beef, fish, pork, turkey, chicken), cooked vegetables or a salad with olive oil and/or fruits (berries, pears, apples, kiwi). Avoid salt, breads, potatoes, rice, pasta, desserts.? Try to drink 64 oz of water daily and avoid soda and juices. ?2. Each shake would be drunk slowly, like coffee in a period of 1-2 hours. Cut each bar in 4 pieces and eat each piece in 15-30 min to make each bar last 1-2 hours. Each meal should take 20-30 minutes to eat. ?3. The meal portions include 6 full-size forks of meat and up to 16 full-size forks of salad. You always eat the meat portion but you can replace up to half of the forks of salad/vegetables with rice, potatoes or pasta, or a fruit if you like. The less you do it the better weight loss will be. ?4. One full-size fork is what can be scooped on the fork without falling aside and not what can be bit with the fork. Use regular forks like those you find in a typical restaurant. ?5.? Please send me weight measurements once a week. Alternatively come weekly at the office for weight checks and send me the measurements. 6. Continue your Ladder workouts at the gym as you have been doing. ?7. Other ideas for gym exercises if you do not want to use Ladder minna: Start treadmill with a speed of 2.0 and incline of 0, increasing incline by 1 every 3 minutes to the highest comfortable level then decrease in the same fashion.? Repeat process to a goal of 300 calories.? Alternatively, start elliptical with an incline of 2.0 and resistance of 4.0. Increase resistance by 1 every 3 min to a max resistance of 10.0, and repeat cycles for 300 calories. Goal of 2000 calories burned or more weekly.? Tracking calories is essential. 8. Alternatively start walking outside daily, tracking calories with a goal of 300 calories per day, daily. You can download the minna [employer] which can track you time, distance and calories while walking outside.? You press start in the minna when you start and then stop when you are finished.?? 9. Goal is to lose at least 1.5-2lbs per week. Blood work ordered. Emailed plan to pt. She will reach out by next week if she decides to enroll in program, and subsequent appts can be scheduled with access granted to [employer] videos. Patient is obese and is not considered stable at this time. I spent a total of 60 minutes reviewing/updating records, examining the patient and counseling the patient on weight management as detailed above. Orders: Orders Vitamin B12 and Folate Today E66.9 - Obesity, unspecified PTHI Today E66.9 - Obesity, unspecified TSH reflex Free T4 Today E66.9 - Obesity, unspecified Vitamin A Today E66.9 - Obesity, unspecified Vitamin B1 Today E66.9 - Obesity, unspecified Vitamin D 25-OH Total Today E66.9 - Obesity, unspecified Zinc Today E66.9 - Obesity, unspecified Coding Level of Care Code New Pt Level 5 (75620) Diagnoses Anxiety and depression F41.9; F32.A Ulcerative colitis K51.90 Asthma J45.909 Obesity E66.9
[2023-05-23 15:35] VITALS: BP 111/74; PULSE 65; TEMP 37.1; O2SAT 98; BMI 33.9
== END 2023-05-23 16:30 | disposition home or self-care (01) ==
PROVIDERS: PCP Internal Medicine; Visit Provider Physician Assistant Surgical
DX: E66.9 Obesity, unspecified (principal); Z68.33 Body mass index [BMI] 33.0-33.9, adult; F41.9 Anxiety disorder, unspecified; K51.90 Ulcerative colitis, unspecified, without complications; J45.909 Unspecified asthma, uncomplicated
CPT/HCPCS: 99205

== ENCOUNTER → 2023-05-23 15:26 | Outpatient (BNVA) | payer OTHER, SELFPAY | PROVIDERS: PCP Internal Medicine; Visit Provider Physician Assistant Surgical | DX: E66.9 Obesity, unspecified (principal); K51.90 Ulcerative colitis, unspecified, without complications; J45.909 Unspecified asthma, uncomplicated; F41.8 Other specified anxiety disorders; Z68.33 Body mass index [BMI] 33.0-33.9, adult | CPT/HCPCS: 99202 ==

== ENCOUNTER 2023-06-13 22:08 | Emergency (ER) | payer OTHER, SELFPAY ==
[2023-06-13 22:25] VITALS: BP 140/73; PULSE 96; RESP 22; TEMP 36.7; O2SAT 96; BMI 35.0
[2023-06-13] MEDS: methylPREDNISolone Sod Succ 125 MG/2 ML VIAL IVPUSH (22:34)
[2023-06-13] MEDS: Magnesium Sulfate/H2O 2 GM/50 ML PIGGYBACK IV (22:34)
[2023-06-13] MEDS: Albuterol Sulfate (0.083%) 2.5 MG/3 ML VIAL.NEB 7.5 MG INHALE (22:35)
[2023-06-13 22:36] VITALS: PULSE 80; RESP 22; O2SAT 94
[2023-06-13] MEDS: Albuterol/Iprat 2.5/0.5MG 3 ML AMPUL.NEB INHALE (22:36)
[2023-06-13 22:43] LABS: MANUAL DIFF FLAG NO
[2023-06-13 22:45] LABS: Basophils Percent Auto 0.3 % (0-2); Eosinophils Absolute Auto 0.9 X10*3/uL (0.0-0.4); Eosinophils Percent Auto 9.6 % (0-4); Hematocrit 38.4 % (37.0-47.0); Hemoglobin 13.5 g/dl (12.0-16.0); Imm Gran Abs Auto 0.03 X10*3/uL (0.00-0.03); Imm Gran Pct Auto 0.3 % (0.0-0.4); Lymphocytes Absolute Auto 2.7 X10*3/uL (1.2-4.9); Lymphocytes Percent Auto 29.4 % (20-40); Mean Corpuscular HGB Conc 35.2 g/dl (31.0-35.0); Mean Corpuscular Hemoglobin 32.5 pg (27.0-33.0); Mean Corpuscular Volume 92.5 fL (80.0-98.0); Mean Platelet Volume 9.7 fL (9.4-12.3); Monocytes Absolute Auto 0.6 X10*3/uL (0.1-1.2); Monocytes Percent Auto 6.2 % (2-11); Neutrophils Percent Auto 54.2 % (45-73); Platelet Count 263 X10*3/uL (160-400); Red Blood Count 4.15 X10*6/uL (4.20-5.50); White Blood Count 9.2 X10*3/uL (4.8-10.8)
--- NOTE | 2023-06-13 22:47 | ED.SOB ---
HPI - SOB/Dyspnea General Chief Complaint: Dyspnea Stated Complaint: Asthma attack Time Seen by Provider: 06/13/23 22:27 Source: patient Mode of arrival: EMS Limitations: no limitations History of Present Illness HPI Narrative: Patient with history of ulcerative colitis in remission, asthma comes in for increased shortness of breath for last 3- 4 days tried her inhaler without much response. Patient does get sick once a year like this no fever no chills Related Data Home Medications Medication Instructions Recorded Confirmed etonogestrel 68 mg subdermal subdermal 03/07/23 05/23/23 implant (Nexplanon) Previous Rx's Medication Instructions Recorded albuterol sulfate 90 mcg/actuation 2 puff inhalation Q4-6H PRN 09/14/22 aerosol inhaler (ProAir HFA) shortness of breath or wheezing #8.5 grams benzonatate 200 mg capsule 200 mg PO TID PRN cough #30 caps 06/14/23 prednisone 20 mg tablet 40 mg PO DAILY #10 tabs 06/14/23 Allergies Allergy/AdvReac Type Severity Reaction Status Date / Time banana [BANANA] Allergy Severe ANAPHYLAXIS Verified 05/23/23 15:33 cantaloupe [CANTALOUPE] Allergy Severe HIVES Verified 05/23/23 15:33 ketorolac [From TORADOL] Allergy Intermediate HIVES Verified 05/23/23 15:33 latex [LATEX] Allergy Mild HIVES Verified 05/23/23 15:33 peach [PEACH] Allergy Mild HIVES Verified 05/23/23 15:33 plum [PLUM] Allergy Mild HIVES Verified 05/23/23 15:33 Review of Systems Review of Systems: Yes all other systems are reviewed and are negative [facility] Past Medical History Medical History (Updated 06/14/23 @ 00:01 by Codey Read MD) Asthma Colitis Surgical History Hx of breast augmentation Hx of colonoscopy Previous section Family History Family History Mother Hypertension Father Asthma Brother No problems noted. Brother No problems noted. Son No problems noted. Son No problems noted. Son Asthma Autism Daughter ADHD Social History Social History Alcohol intake: current Alcohol intake frequency: does not drink Patient Tobacco Use Status: Never used Tobacco Smoked in Last 30 Days: No Use of substances other than those prescribed or required for medical reasons: No Advance Directives: No Advance Directives Information Provided: Yes Patient : No Physical Exam Vital Signs: Vital Signs: Last Vital Signs Temp 97.9 F 06/13/23 23:47 Pulse 98 06/13/23 23:47 Resp 19 06/13/23 23:47 BP 126/68 06/13/23 23:47 Pulse Ox 96 06/13/23 23:47 O2 Del Method Room Air 06/13/23 23:47 BMI result Body Mass Index 35.0 Appearance: Alert. Oriented X3. No acute distress. Eyes: PERRLA, No Nystagmus ENT: Pharynx normal. Oral Mucosa moist Neck: Normal inspection. Neck supple. CVS: Normal heart rate and rhythm. Pulses normal. Respiratory: No respiratory distress. Bilateral wheezing Equal air entry bilateral, no wheezing/rales/rhonchi Abdomen: Soft and nontender. Bowel sounds are present, no mass palpable, no CVA tenderness Skin: Skin warm and dry. Normal skin color. Normal skin turgor. Extremities: No lower extremity edema. No calf tenderness Neuro: Oriented X 3. No motor deficit. Medications Administered Discontinued Medications Generic Name Dose Route Start Last Admin Trade Name Freq PRN Reason Stop Dose Admin Albuterol Sulfate 7.5 mg 06/13/23 22:27 06/13/23 22:35 Albuterol Sulfate (0.083%) 2.5 Mg/3 Ml Vial.Neb INHALE 06/13/23 22:28 7.5 mg ONCE ONE Administration Albuterol/Ipratropium 3 ml 06/13/23 22:27 06/13/23 22:36 Albuterol/Iprat 2.5/0.5mg 3 Ml Ampul.Neb INHALE 06/13/23 22:28 3 ml ONCE ONE Administration Magnesium Sulfate 2 gm in 50 mls @ 100 mls/hr 06/13/23 22:27 06/13/23 22:55 Magnesium Sulfate/H2o IV 06/13/23 22:56 Infused ONCE ONE Infusion Sodium Chloride 1,000 mls @ 999 mls/hr 06/13/23 22:28 06/13/23 22:56 Ns IV 06/13/23 23:28 999 mls/hr .Q1H1M ONE Administration Methylprednisolone Sodium Succinate 125 mg 06/13/23 22:27 06/13/23 22:34 Methylprednisolone Sod Succ 125 Mg/2 Ml Vial IVPUSH 06/13/23 22:28 125 mg ONCE ONE Administration Medical Decision Making Medical Decision Making [facility] Narrative: Patient asthma comes with increased shortness of breath lungs are clear except for wheezing labs are stable patient improved after continues hour long treatment and still wheezing with repeat the another treatment with albuterol IV steroids and magnesium was given discharge patient home on steroids Differential Diagnosis Differential Diagnoses: The differential diagnosis associated with the presentation includes Pneumonia/asthma/bronchitis Lab Data [facility] Lab Attestation statement: I reviewed the patient's lab results. 06/13/23 22:32 06/13/23 22:32 Labs: Lab Results 06/13/23 06/13/23 Range/Units 22:32 22:32 WBC 9.2 (4.8-10.8) X10*3/uL RBC 4.15 L (4.20-5.50) X10*6/uL Hgb 13.5 (12.0-16.0) g/dl Hct 38.4 (37.0-47.0) % MCV 92.5 (80.0-98.0) fL MCH 32.5 (27.0-33.0) pg MCHC 35.2 H (31.0-35.0) g/dl RDW 11.0 (11.0-16.0) % Plt Count 263 (160-400) X10*3/uL MPV 9.7 (9.4-12.3) fL Immature Gran % (Auto) 0.3 (0.0-0.4) % Neut % (Auto) 54.2 (45-73) % Lymph % (Auto) 29.4 (20-40) % [place] % (Auto) 6.2 (2-11) % Eos % (Auto) 9.6 H (0-4) % Baso % (Auto) 0.3 (0-2) % Lymph # (Auto) 2.7 (1.2-4.9) X10*3/uL [place] # (Auto) 0.6 (0.1-1.2) X10*3/uL Eos # (Auto) 0.9 H (0.0-0.4) X10*3/uL Baso # (Auto) 0.0 (0.0-0.2) X10*3/uL Abs Immat Gran (auto) 0.03 (0.00-0.03) X10*3/uL Absolute Neuts (auto) 5.0 (2.0-8.3) x10*3/uL Absolute Nucleated RBC 0.000 (0.0-0.012) X10*3/uL Nucleated RBC % (auto) 0.0 (0.0-0.2) /100WBC Sodium 142 (135-145) mmol/L Potassium 3.4 (3.3-5.1) mmol/L Chloride 109 H (96-108) mmol/L Carbon Dioxide 24 (22-29) mmol/L Anion Gap 12 (12-20) BUN 16 (9-16) mg/dL Creatinine 0.70 (0.5-1.4) mg/dL Estim Creat Clear Calc 114.5 Estimated GFR > 60 Random Glucose 88 (60-115) mg/dL Calcium 10.2 D (8.4-10.2) mg/dL Discharge Plan Discharge Clinical Impression: Asthma with exacerbation Patient Disposition: Home, Self-Care Instructions: Asthma (ED) Additional Instructions: Continue to use inhaler and nebulizer treatment every 4-6 hours Prednisone as prescribed Follow your PCP if not better Prescriptions: New benzonatate 200 mg capsule 200 mg PO TID PRN (Reason: cough) Qty: 30 0RF prednisone 20 mg tablet 40 mg PO DAILY Qty: 10 0RF No Action albuterol sulfate [ProAir HFA] 90 mcg/actuation HFA aerosol inhaler 2 puff inhalation Q4-6H PRN (Reason: shortness of breath or wheezing) Qty: 8.5 0RF Nexplanon 68 mg implant subdermal
[2023-06-13] MEDS: 0.9 % Sodium Chloride 1,000 ML 999 ML IV (22:56)
[2023-06-13 22:59] LABS: Anion Gap 12 (12-20); Blood Urea Nitrogen 16 mg/dL (9-16); Calcium 10.2 mg/dL (8.4-10.2); Carbon Dioxide 24 mmol/L (22-29); Chloride 109 mmol/L (96-108); Creatinine Clr Calc Pharmacy 114.5; Estimated Glomerular Filt Rate > 60; Glucose Random 88 mg/dL (60-115); Potassium 3.4 mmol/L (3.3-5.1); Sodium 142 mmol/L (135-145)
--- NOTE | 2023-06-13 23:01 | PC.NURSE ---
Pt aox4. Albuterol treatment currently running. Pt reports relief. Hx of asthma. No pain. VSS. NSR on monitor with hr 90. Will continue to monitor.
[2023-06-13 23:47] VITALS: BP 126/68; PULSE 98; RESP 19; TEMP 36.6; O2SAT 96
[2023-06-14] MEDS: Albuterol Sulfate (0.083%) 2.5 MG/3 ML VIAL.NEB 5 MG INHALE (00:03)
[2023-06-14 00:04] VITALS: PULSE 94; RESP 19; O2SAT 95
[2023-06-14] MEDS: Benzonatate 100 MG CAPSULE 200 MG PO (00:10)
== END 2023-06-14 00:30 | disposition home or self-care (01) ==
PROVIDERS: Emergency Provider Internal Medicine; PCP Internal Medicine
DX: J45.901 Unspecified asthma with (acute) exacerbation (principal); R06.02 Shortness of breath; Z79.899 Other long term (current) drug therapy
CPT/HCPCS: 36415; 80048; 85025; 94640; 96361; 96365; 96375; 99285; J2930; J3475

== ENCOUNTER 2023-07-18 13:41 | Outpatient (AMB) | payer OTHER, SELFPAY ==
[2023-07-18 14:03] VITALS: BP 112/66; BMI 33.8
--- NOTE | 2023-07-18 14:03 | A.OFFVIS_ITS ---
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 Scribed for SADE Eaton by Anisha Meeks medical service technician, on 07/18/2023 at 2:15 pm EST. Manufacturing Clerk Required: No Information Interpreted: non-clinical & clinical Biofuels Manager: Biofuels Manager Present (Sandy) Allergies latex Allergy (Unknown, Uncoded 07/18/23 14:06) hives Is last menstrual period known: No (nexplanon) Post menopausal: No HPI HPI Comments History of Present Illness Details She is a premenopausal woman presenting for annual exam. 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 She admits to eating healthy and tries to stay active with exercise. Currently sexually active. Uses Nexplanon for BC. Reports menses stopped because of Nexplanon. Denies vaginal itching and irritation. STD screening and blood work offered; she accepts. Denies family hx of ovarian cancer. Last pap smear 04/20/21. [facility] Medical History Abnormal Pap smear of cervix Ulcerative colitis Eczema Asthma Surgical History Hx of breast augmentation Hx of section Family History Maternal Aunt Cervical cancer History of breast cancer Maternal Grandmother Cervical cancer Paternal Grandfather Colon cancer Social History Alcohol intake: current Alcohol intake frequency: holidays/special occasions only Alcohol type: wine Patient Tobacco Use Status: Never used Tobacco Sexual orientation: Straight/Heterosexual Gender identity: Female Female Reproductive History Menstrual Age of Menarche: 9 Duration of menses: 8-10 days control method: implanted Total pregnancies: 9 Full term: 4 Number of Living Children: 4 Ab spontaneous: 5 Date of last pap smear: 04/20/21 (negative) History of abnormal pap smear: Yes (03/07 colpo CIn1 04/10 ASCUS +HPV) Physical Exam Vital Signs: Last Vital Signs BP 112/66 07/18/23 14:03 BMI result Body Mass Index 33.8 Const General: cooperative, healthy appearing, no acute distress, well developed and alert Orientation/consciousness: patient oriented x3 HEENT Head: Yes normal to inspection Eyes General: appearance normal, both eyes and all related structures Neck Neck: Yes normal visual inspection Thyroid: Thyroid normal Chest Other: bilateral breast surgical scarring Chest palpation & inspection: normal inspection of the chest Breast/axilla inspection: normal inspection of the breasts (no puckering, dimpling, peau de orange, retraction, discharge, masses) Breast/axilla palpation: normal palpation of the breasts Resp Effort & Inspection: normal respiratory effort GI Inspection: Yes normal to inspection Palpation (GI): Soft to palpation (to palpation) Rectal Exam - Female: deferred General: Yes bladder normal to inspection External Female Exam: normal external appearance and normal appearance of the urethra Speculum Exam - Vagina: normal appearance of the vagina, normal palpation and normal vaginal discharge Speculum Exam - Cervix: normal appearance of the cervix and normal palpation Bimanual exam- vagina & uterus: normal palpation and normal palpation Bimanual Exam- Adnexa, other: normal adnexae and no masses Skin General skin exam: no rashes or lesions noted Neuro General: patient oriented x3 Cognition (Neuro): normal cognition Extrem General: Yes normal to inspection Psych Attitude: cooperative Thought process: Normal thought process present Assessment & Plan Assessment & Plan (1) Encounter for well woman exam: Code(s): Z01.419 - Encounter for gynecological examination (general) (routine) without abnormal findings Plan: Discussed: Current recommendations for pap smears per ASCCP guidelines. Breast awareness and periodic self breast exams. Maintaining a healthy lifestyle including a well balanced diet and routine exercise. All of her questions and concerns were addressed to the best of my ability. RTO in one year for AG. (2) Potential exposure to STD: Code(s): Z20.2 - Contact with and (suspected) exposure to infections with a predominantly sexual mode of transmission Plan: BV testing and GC/CT panel done today. STD blood work ordered. Await results and treat accordingly. Orders: Orders HIV Ab/Ag Today Z20.2 - Contact with and (suspected) exposure to infections with a predominantly sexual mode of transmission Syphilis Screen Today Z20.2 - Contact with and (suspected) exposure to infections with a predominantly sexual mode of transmission CT NG by PCR Today Z20.2 - Contact with and (suspected) exposure to infections with a predominantly sexual mode of transmission Pap Smear Today Z01.419 - Encounter for gynecological examination (general) (routine) without abnormal findings Hepatitis C Antibody Today Z20.2 - Contact with and (suspected) exposure to infections with a predominantly sexual mode of transmission Coding Level of Care Code Est Pt Prev Care 18-39y(48521) Diagnoses Encounter for well woman exam Z01.419 Potential exposure to STD Z20.2
== END 2023-07-18 14:39 | disposition home or self-care (01) ==
PROVIDERS: PCP Internal Medicine; Visit Provider Advanced Practice Midwife
DX: Z01.419 Encounter for gynecological examination (general) (routine) without abnormal findings (principal); Z20.2 Contact with and (suspected) exposure to infections with a predominantly sexual mode of transmission
CPT/HCPCS: 99395

== ENCOUNTER 2023-07-18 13:41 | Outpatient (REF) | payer OTHER, SELFPAY ==
[2023-07-18 18:20] LABS: CT PCR NOT DETECTED (Not Detect.); NG PCR NOT DETECTED (Not Detect.)
[2023-07-21 06:39] LABS: HPV mRNA E6/E7 rflx Not Detected (Not Detected)
== END 2023-07-18 13:42 | disposition home or self-care (01) ==
LOC: HO.LNP 13:41
PROVIDERS: PCP Internal Medicine; Visit Provider Advanced Practice Midwife
DX: Z01.419 Encounter for gynecological examination (general) (routine) without abnormal findings (principal); Z20.2 Contact with and (suspected) exposure to infections with a predominantly sexual mode of transmission
CPT/HCPCS: 0353U; 87624; 88142; 99395

== ENCOUNTER 2023-10-11 08:13 | Outpatient (REF) | payer OTHER, SELFPAY ==
[2023-10-11 08:37] LABS: MANUAL DIFF FLAG NO
[2023-10-11 09:22] LABS: Basophils Percent Auto 0.2 % (0-2); Eosinophils Absolute Auto 0.3 X10*3/uL (0.0-0.4); Eosinophils Percent Auto 3.3 % (0-4); Hematocrit 42.1 % (37.0-47.0); Hemoglobin 14.3 g/dl (12.0-16.0); Imm Gran Abs Auto 0.03 X10*3/uL (0.00-0.03); Imm Gran Pct Auto 0.4 % (0.0-0.4); Lymphocytes Absolute Auto 1.5 X10*3/uL (1.2-4.9); Lymphocytes Percent Auto 17.9 % (20-40); Mean Corpuscular Hemoglobin 32.5 pg (27.0-33.0); Mean Corpuscular Volume 95.7 fL (80.0-98.0); Mean Platelet Volume 10.1 fL (9.4-12.3); Monocytes Absolute Auto 0.5 X10*3/uL (0.1-1.2); Monocytes Percent Auto 6.4 % (2-11); Neutrophils Absolute Auto 5.8 x10*3/uL (2.0-8.3); Neutrophils Percent Auto 71.8 % (45-73); Platelet Count 272 X10*3/uL (160-400); White Blood Count 8.1 X10*3/uL (4.8-10.8)
[2023-10-11 09:50] LABS: Alanine Aminotransferase 32 U/L (0-31); Alkaline Phosphatase 61 U/L (39-117); Anion Gap 12 (12-20); Aspartate Amino Transferase 21 U/L (5-31); Bilirubin Direct 0.2 mg/dL (0.0-0.5); Bilirubin Total 0.6 mg/dL (0.0-1.0); Blood Urea Nitrogen 14 mg/dL (9-16); Calcium 10.1 mg/dL (8.4-10.2); Carbon Dioxide 24 mmol/L (22-29); Chloride 109 mmol/L (96-108); Estimated Glomerular Filt Rate > 60; Glucose Random 86 mg/dL (60-115); Lipase 29 U/L (8-78); Potassium 4.2 mmol/L (3.3-5.1); Sodium 141 mmol/L (135-145); Total Protein 8.1 g/dL (6.5-8.0)
== END 2023-10-11 08:14 | disposition home or self-care (01) ==
LOC: HO.LAB 08:13
PROVIDERS: PCP Internal Medicine; Visit Provider Internal Medicine
DX: R19.7 Diarrhea, unspecified (principal); R11.10 Vomiting, unspecified
CPT/HCPCS: 36415; 80048; 80076; 83690; 85025

== ENCOUNTER 2024-04-01 13:29 | Emergency (ER) | payer OTHER, SELFPAY ==
[2024-04-01 14:49] VITALS: BP 136/88; PULSE 68; RESP 18; TEMP 36.2; O2SAT 96; BMI 31.7
--- NOTE | 2024-04-01 14:50 | ED.GENADULT ---
HPI - General Adult General Chief complaint: General Medical Stated complaint: hemorrhoid pain ? Time Seen by Provider: 04/01/24 19:56 Source: patient Mode of arrival: ambulatory Limitations: no limitations History of Present Illness ED Provider: Dr. Sourav Foley HPI narrative: 33-year-old female with a history of asthma, IBS, depression, anxiety, ulcerative colitis who presents emergency department for evaluation of rectal pain and ulcerative colitis flare. Patient states that she was having episodes of diarrhea that would last all day long. She had this for several days and then they resolved. She states that she has now been constipated for several days. She states that she started lactulose but this did not relieve her constipation. She states she is having severe pain in her rectal area. She states she has never had pain like this before with her ulcerative colitis flares. 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 The patient denied fever, chills, nausea, vomiting, frequency, urgency or dysuria. Related Data Home Medications ?Medication ?Instructions ?Recorded ?Confirmed albuterol sulfate 90 mcg/actuation 0 mcg inhalation 04/20/21 aerosol inhaler cetirizine 10 mg tablet 10 mg PO DAILY 04/20/21 cyclosporine modified 25 mg capsule 25 mg PO BID 04/20/21 epinephrine 0.3 mg/0.3 mL IM 04/20/21 injection, auto-injector etonogestrel 68 mg subdermal subdermal 04/20/21 implant (Nexplanon) etonogestrel 68 mg subdermal subdermal 03/07/23 05/23/23 implant (Nexplanon) fluticasone propionate 110 2 puff inhalation BID 07/18/23 mcg/actuation HFA aerosol inhaler (Flovent HFA) fluticasone propionate 50 intranasal 07/18/23 mcg/actuation nasal spray,suspension Previous Rx's ?Medication ?Instructions ?Recorded albuterol sulfate 90 mcg/actuation 2 puff inhalation Q4-6H PRN 09/14/22 aerosol inhaler (ProAir HFA) shortness of breath or wheezing #8.5 grams benzonatate 200 mg capsule 200 mg PO TID PRN cough #30 caps 06/14/23 prednisone 20 mg tablet 40 mg (2 x 20 mg) PO DAILY #10 tabs 06/14/23 docusate sodium 100 mg capsule 100 mg PO BID 2 weeks #28 caps 04/01/24 (Colace) hydrocortisone 2.5 % topical cream 1 appl VA BID PRN pain #30 grams 04/01/24 with perineal applicator (Proctozone-HC) prednisone 10 mg tablet 10 mg PO DIRECTED #32 tabs 04/01/24 Allergies Allergy/AdvReac Type Severity Reaction Status Date / Time banana [BANANA] Allergy Severe ANAPHYLAXIS Verified 04/01/24 14:51 cantaloupe [CANTALOUPE] Allergy Severe HIVES Verified 04/01/24 14:51 ketorolac [From TORADOL] Allergy Intermediate HIVES Verified 04/01/24 14:51 latex [LATEX] Allergy Mild HIVES Verified 04/01/24 14:51 peach [PEACH] Allergy Mild HIVES Verified 04/01/24 14:51 plum [PLUM] Allergy Mild HIVES Verified 04/01/24 14:51 latex Allergy Unknown hives Uncoded 04/01/24 14:51 Review of Systems Review of Systems: Yes all other systems are reviewed and are negative [facility] Past Medical History [facility] Narrative: Social history: She denies tobacco use. She occasionally drinks alcohol. She denies drug use. Medical History (Updated 04/02/24 @ 00:01 by Sean Parker) Abnormal Pap smear of cervix Ulcerative colitis Eczema Asthma Colitis Asthma Surgical History (Updated 08/30/23 @ 12:42 by Zoe Jhaveri) Hx of breast augmentation Hx of section Hx of breast augmentation Hx of colonoscopy Previous section Family History Family History Mother Hypertension Father Asthma Brother No problems noted. Brother No problems noted. Son No problems noted. Son No problems noted. Son Asthma Autism Daughter ADHD Social History Social History (System 08/30/23 @ 12:42 by Zoe Jhaveri) Alcohol intake: current Alcohol intake frequency: holidays/special occasions only Alcohol type: wine Patient Tobacco Use Status: Never used Tobacco Advance Directives: No Advance Directives Information Provided: No Do you have a plan to hurt others: No Plan Sexual orientation: Straight/Heterosexual Gender identity: Female Physical Exam ED Vital Signs: Vital Signs - 24 hr 04/01/24 20:20 Temperature 98.2 F Pulse Rate 82 Respiratory Rate 20 Blood Pressure 112/82 Pulse Oximetry 96 Oxygen Delivery Method Room Air BMI result Body Mass Index 31.7 Vital signs were normal Exam: General: Awake, alert in no distress Head: Normocephalic, atraumatic EENT: PERRL, Lids normal, sclera normal, conjunctiva normal, nose normal , ears normal, throat without erythema or exudates Neck: Supple, no adenopathy Lung: breath sounds symmetric, no wheezing, rales or rhonchi Chest: symmetric movement, nontender Heart: regular rate and rhythm, normal S1, S2 no murmurs or rubs Abdomen: soft, non-tender, nondistended, normal bowel sounds Rectal exam: Patient's anus appears to be normal with no fissures or tears that I can appreciate on her exam. No external hemorrhoids noted Back: no vertebral tenderness, no CVAT Extremities: no deformities, moves all extremities symmetrically Neuro: Awake, alert, oriented, normal speech, cranial nerves intact, moves all extremities symmetrically Psych: Pleasant, cooperative Course Course Course Narrative: This is a Rapid Medical Examination (RME) performed by Cheyenne Breaux PA-C in triage. Full HPI, ROS, assessment and treatment plan per primary provider in the Main ED. 33 yo female hx of UC here for eval of hemorrhoids. reports UC flare 1 wk ago with increased bowel movements. Since this time reports pain and bleeding with BMs. took UC meds and flare has resolved. attempted to take stool softeners and lactulose with minimal relief. last BM this morning. she has been avoiding passing BM d/t pain. Called PCP who noted concern for bleeding hemorrhoids and advised her to come to ED for evaluation. well appaering in triage. abd soft, ND/NT, no rebound or guarding. Plan: basic labs ordered +/- OBS. Medications Administered Discontinued Medications Generic Name Dose Route Start Last Admin Trade Name Freq PRN Reason Stop Dose Admin Prednisone 40 mg 04/01/24 20:13 04/01/24 20:26 Prednisone 20 Mg Tablet PO 04/01/24 20:14 40 mg ONCE ONE Administration Medical Decision Making Medical Decision Making [facility] Narrative: 33-year-old female with a history of asthma, IBS, depression, anxiety, ulcerative colitis who presents emergency department for evaluation of rectal pain and ulcerative colitis flare with severe diarrhea now constipation and severe rectal pain.Patient's vital signs were normal. Physical examination did not reveal any external hemorrhoids or obvious rectal fissures. Differential diagnosis: ?Includes but is not limited to ulcerative colitis flare, external hemorrhoids, internal hemorrhoids, rectal tear/fissures Following evaluation was ordered: CBC, CMP, urinalysis Patient was initially treated with the following: Prednisone 40 mg orally Course: My independent interpretation patient's laboratory evaluation as follows: CBC was normal. CMP was normal. Urinalysis was negative. Patient's presentation is consistent with an ulcerative colitis flare and most likely internal inflamed hemorrhoids Patient was treated with preparation H suppositories, 1 suppository twice a day for 2 weeks. She was also given a prescription for Colace 100 mg twice a day for 2 weeks and Proctozone 2.5% cream apply internally twice a day and externally to the rectum twice a day. Patient was started on a prednisone taper of 40 mg once a day for 5 days and decrease by 1 mg every 2 days until completing the prescription. Patient was advised to stop taking the lactulose and to follow-up with her playground worker or PCP for re-evaluation and to return if her symptoms get worse. Admission/Observation Consideration of admission/observation: Escalation of care including admission/observation considered Lab Data MDM Lab Attestation statement: I reviewed the patient's lab results. 04/01/24 14:58 04/01/24 14:58 Labs: Lab Results 04/01/24 04/01/24 Range/Units 14:58 17:37 WBC 8.8 (4.8-10.8) X10*3/uL RBC 4.38 (4.20-5.50) X10*6/uL Hgb 14.6 (12.0-16.0) g/dl Hct 41.3 (37.0-47.0) % MCV 94.3 (80.0-98.0) fL MCH 33.3 H (27.0-33.0) pg MCHC 35.4 H (31.0-35.0) g/dl RDW 11.0 (11.0-16.0) % Plt Count 280 (160-400) X10*3/uL MPV 10.0 (9.4-12.3) fL Immature Gran % (Auto) 0.2 (0.0-0.4) % Neut % (Auto) 68.9 (45-73) % Lymph % (Auto) 20.2 (20-40) % [place] % (Auto) 5.6 (2-11) % Eos % (Auto) 4.6 H (0-4) % Baso % (Auto) 0.5 (0-2) % Lymph # (Auto) 1.8 (1.2-4.9) X10*3/uL [place] # (Auto) 0.5 (0.1-1.2) X10*3/uL Eos # (Auto) 0.4 (0.0-0.4) X10*3/uL Baso # (Auto) 0.0 (0.0-0.2) X10*3/uL Abs Immat Gran (auto) 0.02 (0.00-0.03) X10*3/uL Absolute Neuts (auto) 6.1 (2.0-8.3) x10*3/uL Absolute Nucleated RBC 0.000 (0.0-0.012) X10*3/uL Nucleated RBC % (auto) 0.0 (0.0-0.2) /100WBC Sodium 140 (135-145) mmol/L Potassium 4.0 (3.3-5.1) mmol/L Chloride 108 (96-108) mmol/L Carbon Dioxide 25 (22-29) mmol/L Anion Gap 11 L (12-20) BUN 14 (9-16) mg/dL Creatinine 0.73 (0.5-1.4) mg/dL Estim Creat Clear Calc 104.2 Estimated GFR > 60 Random Glucose 86 (60-115) mg/dL Calcium 10.3 H (8.4-10.2) mg/dL Total Bilirubin 0.9 (0.0-1.0) mg/dL AST 22 (5-31) U/L ALT 27 (0-31) U/L Alkaline Phosphatase 70 (39-117) U/L Total Protein 8.2 H (6.5-8.0) g/dL Albumin 4.9 (3.5-5.0) g/dL Urine Color Yellow Urine Appearance Clear Urine pH 6.0 (5.0-9.0) Ur Specific Atlas 1.020 (1.005-1.025) Urine Protein Negative (Neg-Trace) mg/dL Urine Glucose (UA) Negative (Negative) mg/dL Urine Ketones Negative (Negative) mg/dL Urine Blood Negative (Negative) Urine Nitrite Negative (Negative) Ur Leukocyte Esterase Negative (Negative) Prescription Management I considered prescription management with: Other (Ulcerative colitis) Discharge Plan Discharge Clinical Impression: Ulcerative colitis, Pain, rectal Patient Disposition: Home, Self-Care Instructions: Rectal Pain (ED) Additional Instructions: Your laboratory evaluation included a CBC (complete blood count), CMP (comprehensive metabolic) and a urinalysis. These tests were all normal. On your rectal exam I did not see any obvious external fissures/rectal tears or external hemorrhoids. Your symptoms could be caused by an internal fissure/rectal tear or internal hemorrhoids. The treatment for these conditions are the same. Use preparation H suppositories 1 suppository after each bowel movement and 1 suppository twice a day. Use Proctozone 2.5 % cream, apply small amount internally with the applicator and rub small amount on the outside of the rectal area twice a day for 1 week Take Colace 100 mg, 1 pill twice a day for 2 weeks to help soften your stool. Take prednisone 10 mg pills, 4 pills for 5 days then decrease by 1 pill every 2 days until you complete the prescription. You were given a dose here in the emergency department, start your next dose tomorrow evening. Take extra-strength Tylenol 500 mg, 2 pills every 6 hours as needed for pain. Increase your fluid intake to help soften your stool. Stop taking lactulose Follow-up with your doctor in 2 days. Please return to the emergency department if your symptoms get worse or if you develop any symptoms that are concerning to you. Prescriptions: New docusate sodium [Colace] 100 mg capsule 100 mg PO BID 14 Days Qty: 28 0RF hydrocortisone [Proctozone-HC] 2.5 % cream with perineal applicator 1 appl VA BID PRN (Reason: pain) Qty: 30 0RF prednisone 10 mg tablet 10 mg PO DIRECTED Qty: 32 0RF Rx Instructions: Day 1 through 5 take 4 pills then decrease by 1 pill every 2 days until you complete prescription No Action albuterol sulfate [ProAir HFA] 90 mcg/actuation HFA aerosol inhaler 2 puff inhalation Q4-6H PRN (Reason: shortness of breath or wheezing) Qty: 8.5 0RF benzonatate 200 mg capsule 200 mg PO TID PRN (Reason: cough) Qty: 30 0RF prednisone 20 mg tablet 40 mg PO DAILY Qty: 10 0RF albuterol sulfate 90 mcg/actuation HFA aerosol inhaler 0 mcg inhalation cetirizine 10 mg tablet 10 mg PO DAILY cyclosporine modified 25 mg capsule 25 mg PO BID epinephrine 0.3 mg/0.3 mL auto-injector IM Nexplanon 68 mg implant subdermal Nexplanon 68 mg implant subdermal fluticasone propionate 50 mcg/actuation spray,suspension intranasal fluticasone propionate [Flovent HFA] 110 mcg/actuation HFA aerosol inhaler 2 puff inhalation BID Discharge Date/Time: 04/01/24 21:50 Print Language: Tamazight
[2024-04-01 15:13] LABS: MANUAL DIFF FLAG NO
[2024-04-01 15:19] LABS: Basophils Percent Auto 0.5 % (0-2); Eosinophils Absolute Auto 0.4 X10*3/uL (0.0-0.4); Eosinophils Percent Auto 4.6 % (0-4); Hematocrit 41.3 % (37.0-47.0); Hemoglobin 14.6 g/dl (12.0-16.0); Imm Gran Abs Auto 0.02 X10*3/uL (0.00-0.03); Imm Gran Pct Auto 0.2 % (0.0-0.4); Lymphocytes Absolute Auto 1.8 X10*3/uL (1.2-4.9); Lymphocytes Percent Auto 20.2 % (20-40); Mean Corpuscular HGB Conc 35.4 g/dl (31.0-35.0); Mean Corpuscular Hemoglobin 33.3 pg (27.0-33.0); Mean Corpuscular Volume 94.3 fL (80.0-98.0); Monocytes Absolute Auto 0.5 X10*3/uL (0.1-1.2); Monocytes Percent Auto 5.6 % (2-11); Neutrophils Absolute Auto 6.1 x10*3/uL (2.0-8.3); Neutrophils Percent Auto 68.9 % (45-73); Platelet Count 280 X10*3/uL (160-400); Red Blood Count 4.38 X10*6/uL (4.20-5.50); White Blood Count 8.8 X10*3/uL (4.8-10.8)
[2024-04-01 15:30] LABS: Alanine Aminotransferase 27 U/L (0-31); Albumin Level 4.9 g/dL (3.5-5.0); Alkaline Phosphatase 70 U/L (39-117); Anion Gap 11 (12-20); Aspartate Amino Transferase 22 U/L (5-31); Bilirubin Total 0.9 mg/dL (0.0-1.0); Blood Urea Nitrogen 14 mg/dL (9-16); Calcium 10.3 mg/dL (8.4-10.2); Carbon Dioxide 25 mmol/L (22-29); Chloride 108 mmol/L (96-108); Creatinine Clr Calc Pharmacy 104.2; Estimated Glomerular Filt Rate > 60; Glucose Random 86 mg/dL (60-115); Sodium 140 mmol/L (135-145); Total Protein 8.2 g/dL (6.5-8.0)
--- OUTSIDE RECORDS SUMMARY | 2024-04-01 17:06 | XMS_ITS | Patient Health Record ---
Author Organization [facility] Address [address] [place] [address] Care Team Providers Care Customer Service Trainer Name Role Phone Jerrymamie Loretta Primary Care Provider Jairo Mcclendon Unavailable [phone] ALLERGIES Allergen (clinical drug ingredient) Drug/Non Drug Allergy documented on EMR Reaction Allergy Type Onset Date Status Latex Gloves Unknown Drug Allergy Acti ve banana allergenic extract bananas (uncoded) Unknown Allergy Active RESULTS Component Value Reference Range Notes Complete Blood Count Auto Di ff Reviewed date:10/25/2023 10:44:44 AM Interpretation: Performing Lab:[facility], [address] [place] [id number] Notes/Report: White Blood Count 8.1 4.8-10.8 X10*3/uL Red Blood Count 4.40 4.20-5.50 X10*6/uL Hemoglobin 14.3 12.0-16.0 g/dl Hematocrit 42.1 37.0-47.0 % Mean Corpuscular Volume 95.7 80.0-98.0 fL Mean Corpuscular Hemoglobin 32.5 27.0-33.0 pg Mean Corpuscular HGB Conc 34.0 31.0-35.0 g/dl Red Cell Distribution Width 11.0 11.0-16.0 % Platelet Count 272 160-400 X10*3/uL Mean Platelet Volume 10.1 9.4-12.3 fL Neutrophils Percent Auto 71.8 45-73 % Imm Gran Pct Auto 0.4 0.0-0.4 % Lymphocytes Percent Auto 17.9 20-40 % Monocytes Percent Auto 6.4 2-11 % Eosinophils Percent Auto 3.3 0-4 % Basophils Percent Auto 0.2 0-2 % NRBC Pct Auto 0.0 0.0-0.2 /100WBC Neutrophils Absolute Auto 5.8 2.0-8.3 x10*3/u L Imm Gran Abs Auto 0.03 0.00-0.03 X10*3/uL Lymphocytes Absolute Auto 1.5 1.2-4.9 X10*3/u L Monocytes Absolute Auto 0.5 0.1-1.2 X10*3/uL Eosinophils Absolute Auto 0.3 0.0-0.4 X10*3/u L Basophils Absolute Auto 0.0 0.0-0.2 X10*3/uL NRBC Abs Auto 0.000 0.0-0.012 X10*3/uL Liver Panel Reviewed date:10/11/2023 11:30:32 AM Interpretation: Performing Lab:[facility], [address] [place] [id number] Notes/Report: Bilirubin Total 0.6 0.0-1.0 mg/dL Bilirubin Direct 0.2 0.0-0.5 mg/dL Aspartate Amino Transferase 21 5-31 U/L Alanine Aminotransferase 32 0-31 U/L Total Protein 8.1 6.5-8.0 g/dL Albumin Level 5.0 3.5-5.0 g/dL Alkaline Phosphatase 61 39-117 U/L Basic Metabolic Panel Reviewed date:10/11/2023 11:30:13 AM Interpretation: Performing Lab:[facility], [address] [place] [phone] Notes/Report: Sodium 141 135-145 mmol/L Potassium 4.2 3.3-5.1 mmol/L Chloride 109 96-108 mmol/L Carbon Dioxide 24 22-29 mmol/L Anion Gap 12 12-20 Blood Urea Nitrogen 14 9-16 mg/dL Creatinine 0.74 0.5-1.4 mg/dL Estimated Glomerular Filt Rate > 60 NOTE: For -Citizen Of [place] individuals, multiply the result by 1.210. Chronic Kidney Disease: Estimated GFR < 60 mL/min/1.73m2 Severe Kidney Disease: Estimated GFR < 15 mL/min/1.73m2 Glucose Random 86 60-115 mg/dL Calcium 10.1 8.4-10.2 mg/dL Lipase Reviewed date:10/11/2023 11:29:26 AM Interpretation: Performing Lab:[facility], [address] [facility], [place] [address] Notes/Report: Lipase 29 8-78 U/L REASON FOR REFERRAL No Information MEDICATIONS Medication SIG (Take, Route, Fr equency, Duration) Notes Start Date End Date Status Dicyclomine HCl 10 MG TAKE 1-2 CAPSULES BY MOUTH EVERY 6 HOURS NEEDED FOR ABDOMINAL CRAMPS/DIARRHEA 30 DAYS for 90 Active Ondansetron 4 MG 1 tablet on the tong ue and allow to dissolve Orally Every 4 to 6 hours as needed for nausea for 30 day(s) 10/04/2023 Active Ventolin HFA Active IMMUNIZATIONS Vaccine Route Administration Date Status Comme nts Influenza Unknown 09/21/2019 Administered SOCIAL HISTORY Sex Assigned At : Social History Observation Description Sex Assigned At Unknown PROBLEMS Problem Type ICD Code Onset Dates Problem Status W/U Status Risk SNOMED Code Notes Problem Diarrhea (R19.7) Active confirmed 27271 008 Problem Irritable bowel syndrome with diarrhea (K58.0) Active confirmed Irritable bowel syndrome with diarrhea (763336623) Problem Family history of colon cancer (Z80.0) Active confirmed 964310605 Problem Lymphocytic colitis (K52.89) Active confirmed 92529092 Problem Diarrhea of presumed infectious origin (R19.7) Active confirmed 16369457 Problem Acute vomiting (R11.10) Active confirmed 15896078 VITAL SIGNS Temperature 97.5 degrees Fahrenheit 10/25/2023 Blood pressure diastolic 00 mm Hg 10/25/2023 Height 59.5 in 10/25/2023 Blood pressure systolic 00 mm Hg 10/25/2023 Weight 172 lbs 10/25/2023 BMI 34.15 kg/m2 10/25/2023 Encounters Encounter Location Date Provider Diagnosis [facility] [address] [place] [address] 10/25/2023 Jairo Corea Irritable bowel syndrome with diarrhea K58.0 [facility] [address] [place] [address] 10/03/2023 Jairo Corea Diarrhea of presumed infectious origin R19.7 and Acute vomiting R11.10 [facility] [address] [place] [address] 04/01/2024 Jairo Corea [facility] [address] [place] [address] 04/01/2024 Jairo Corea ASSESSMENTS Encounter Date Diagnosis Assessment Notes Treatment Notes Treatment Clinical Notes 10/25/2023 Irritable bowel syndrome with diarrhea (ICD-10 - K58.0) I will send over a prescription for the Dicyclomine for you to use for cramps/diarrhea as needed her 10/03/2023 Diarrhea of presumed infectious origin (ICD-10 - R19.7) 10/03/2023 Acute vomiting (ICD-10 - R11.10) PLAN OF TREATMENT Pending Test Test Name Order Date CHEM 7 PROFILE 10/03/2023 LIVER PROFILE 10/03/2023 CBC w DIFF 10/03/2023 CLOSTRIDIUM DIFF TOXIN A&B (C DIFF) 08/23 STOOL WBC 09/13/2015 GIARDIA AG, STOOL EIA 09/13/2015 OVA & PARASITES (O&P) 09/13/2015 CULTURE, STOOL 09/13/2015 STOOL WBC 10/03/2023 C DIFFICILE RFLX PCR 10/03/2023 Lipase 10/03/2023 Calprotectin, Fecal 10/03/2023 GI PANEL 10/03/2023 Future Test Test Name Order Date COLONOSCOPY 07/16/2014 Insurance Providers Payer Name Payer Address Payer Phone Subscriber Number Group Number Insured Name Patient Relationship to Insured Coverage Start Date Coverage End Date [facility] [employer] [address] [place] [address] [id number] ABNER PATHAK Self - patient is the insured MEDICAID OF [facility] [employer] [facility] [address] [place] [address] [id number] ABNER PATHAK Self - patient is the insured MEDICAL (GENERAL) HISTORY Medical History History ICD Code Denies PA,DM,CVA,Lung disease,renal dise ase Miscarriage in 05/2014 Asthma. Colonoscopy in July 2014 was basically normal other than some very questionable changes of mild colitis in the sigmoid colon--biopsies throughout the colon revealed some very mild and nonspecific inflammation, but the pathologist raised the possibility of some underlying lymphocytic colitis--she was treated with a course of mesalamine and Entocort at that time. She stopped her mesalamine sometime in 2020. 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
--- OUTSIDE RECORDS SUMMARY | 2024-04-01 17:06 | XMS_ITS | Patient Health Record ---
Author Organization [facility] Address [address], [place] [id number] Care Team Providers Care Hvac Engineering Technician Name Role Phone Dr James Zuniga Primary Care Provider Unavaila ble REASON FOR REFERRAL No Information MEDICATIONS Medication SIG (Take, Route, Frequency, Duration) Notes Start Date End Date Status fluocinolone topical 10/22/2023 10/22/99 Active Rx Multivitamins with Folic Acid 1 mg 1 tab(s) orally once a day for 30 day(s) 10/22/2023 10/22/2023 Active IMMUNIZATIONS Vaccine Route Administration Date Status Comme nts PPD offered and declined Unknown 12/24/2009 Administere d negative SOCIAL HISTORY Sex Assigned At : Social History Observation Description Sex Assigned At Unknown PLAN OF TREATMENT No Information Insurance Providers Payer Name Payer Address Payer Phone Subscriber Number Group Number Insured Name Patient Relationship to Insured Coverage Start Date Coverage End Date [facility] [place] [place] Health[employer] Plan [address] [address] [place] [address] [id number] Alejandra Pelletier Self - patient is the insured MEDICAL (GENERAL) HISTORY Medical History History ICD Code Pt. reports hx. of asthma, eczema with m etal trigger, wear glasses Hospitalization History Reason Date(Month/Year) blood disorder/?low hemoglobin age 14
[2024-04-01 17:45] LABS: Appearance Urine Clear; Color Urine Yellow; Glucose Urine UA Negative (Negative); Leukocyte Esterase Urine Negative (Negative); Nitrite Urine Negative (Negative); Urine Blood Negative (Negative); Urine Ketones Negative (Negative); Urine Protein Negative (Neg-Trace)
[2024-04-01 20:20] VITALS: BP 112/82; PULSE 82; RESP 20; TEMP 36.8; O2SAT 96
[2024-04-01] MEDS: predniSONE 20 MG TABLET 40 MG PO (20:26)
== END 2024-04-01 21:50 | disposition home or self-care (01) ==
PROVIDERS: Physician Assistant Medical; Emergency Provider Emergency Medicine Emergency Medical Services; PCP Internal Medicine
DX: K51.90 Ulcerative colitis, unspecified, without complications (principal); Z79.899 Other long term (current) drug therapy
CPT/HCPCS: 36415; 80053; 81003; 85025; 99283

== ENCOUNTER 2025-04-02 15:50 | Outpatient (REF) | payer OTHER, SELFPAY ==
[2025-04-02 16:08] LABS: MANUAL DIFF FLAG NO
[2025-04-02 16:24] LABS: Basophils Percent Auto 0.4 % (0-2); Eosinophils Absolute Auto 0.6 X10*3/uL (0.0-0.4); Eosinophils Percent Auto 6.6 % (0-4); Hematocrit 37.6 % (37.0-47.0); Hemoglobin 13.2 g/dl (12.0-16.0); Imm Gran Abs Auto 0.02 X10*3/uL (0.00-0.03); Imm Gran Pct Auto 0.2 % (0.0-0.4); Lymphocytes Percent Auto 23.3 % (20-40); Mean Corpuscular HGB Conc 35.1 g/dl (31.0-35.0); Mean Corpuscular Hemoglobin 32.8 pg (27.0-33.0); Mean Corpuscular Volume 93.3 fL (80.0-98.0); Mean Platelet Volume 9.7 fL (9.4-12.3); Monocytes Absolute Auto 0.6 X10*3/uL (0.1-1.2); Monocytes Percent Auto 7.3 % (2-11); Neutrophils Absolute Auto 5.2 x10*3/uL (2.0-8.3); Neutrophils Percent Auto 62.2 % (45-73); Platelet Count 249 X10*3/uL (160-400); Red Blood Count 4.03 X10*6/uL (4.20-5.50); Red Cell Distribution Width 10.8 % (11.0-16.0); White Blood Count 8.4 X10*3/uL (4.8-10.8)
[2025-04-02 16:55] LABS: Alanine Aminotransferase 30 U/L (0-31); Albumin Level 4.9 g/dL (3.5-5.0); Alkaline Phosphatase 48 U/L (39-117); Anion Gap 10 (12-20); Aspartate Amino Transferase 27 U/L (5-31); Bilirubin Total 0.7 mg/dL (0.0-1.0); Blood Urea Nitrogen 20 mg/dL (9-16); Calcium 9.7 mg/dL (8.4-10.2); Carbon Dioxide 26 mmol/L (22-29); Chloride 109 mmol/L (96-108); Estimated Glomerular Filt Rate > 60; Glucose Random 82 mg/dL (60-115); Potassium 3.8 mmol/L (3.3-5.1); Sodium 141 mmol/L (135-145); Total Protein 7.5 g/dL (6.5-8.0)
[2025-04-02 17:09] LABS: TSH reflex Free T4 3.61 uIU/mL (0.32-4.0)
--- OUTSIDE RECORDS SUMMARY | 2025-04-02 18:09 | XMS_ITS ---
Author Organization [facility] Address [address] [place] [id number] Care Team Providers Care Acute Care Nurse Practitioner Name Role Phone Loretta Larkin Primary Care Provider UnavailJairo Valadez [phone] Allergies Allergen (clinical drug ingredient) Drug/Non Drug Allergy documented on EMR Reaction Allergy Type Onset Date Status Latex Gloves Unknown Drug Allergy Acti ve banana allergenic extract bananas (uncoded) Unknown Allergy Active Medications Medication SIG (Take, Route, Fr equency, Duration) Notes Start Date End Date Status Ondansetron 4 MG 1 tablet on the tong ue and allow to dissolve Orally Every 4 to 6 hours as needed for nausea for 30 day(s) 10/04/2023 Active Ventolin HFA Active Dicyclomine HCl 10 MG 1 or 2 Orally Ever y 6 hours as needed for abdominal cramps/diarrhea for 30 days Acti ve Vital Signs Temperature 97.5 degrees Fahrenheit 10/25/19 24 Blood pressure systolic 00 mm Hg 10/25/19 24 Blood pressure diastolic 00 mm Hg 024 Height 59.5 in 10/25/2023 Weight 172 lbs 10/25/2023 BMI 34.15 kg/m2 10/25/2023 Encounters Encounter Location Date Provider Diagnosis [facility] [address] [place] [id number] 10/25/2023 Jairo Corea Irritable bowel syndrome with diarrhea K58.0 Assessments Encounter Date Diagnosis (ICD Code) Assessment Notes Treatment Notes Treatment Clinical Notes Section Notes 10/25/2023 Irritable bowel syndrome with diarrhea (ICD-10 - K58.0) I will send over a prescription for the Dicyclomine for you to use for cramps/diarrhea as needed her Overall, Alejandra appears quite well. We did review her previous history and current history. I advised her that at this point I doubt she has any underlying type of colitis and her symptoms seem very consistent with intermittent irritable bowel syndrome, as well as the above mentioned episode of Norovirus she contracted at work. We did review those diagnoses in detail today. I advised her that since things are stable she can continue to use p.r.n. dicyclomine and I will send her a new prescription for that. I also advised her to use Zofran as needed for any intermittent nausea. At this point since she appears well I don't think she needs any diagnostic testing nor any other therapeutic intervention, including endoscopic testing. If things remain stable I advised her that she could simply see me on a p.r.n. basis. Alejandra was very comfortable with that plan. Thank you again for allowing me to participate in Alejandra's care. I shall continue to keep you advised of her progress. Plan Of Treatment Medication Medication Name Sig Start Date Stop Date Notes Dicyclomine HCl 10 MG 1 or 2 Orally Ever y 6 hours as needed for abdominal cramps/diarrhea for 30 days Treatment Notes Assessment Notes Irritable bowel syndrome with diarrhea I will send over a prescription for the Dicyclomine for you to use for cramps/diarrhea as needed her Next Appt Details Follow Up: prn, Reason: Progress Notes * YA PATHAKIEDOB: (33 yo F)Acc No.[id number]:10/25/2023 Progress Notes Patient:?ASHLEIGH PATHAK Provider:?Jairo Corea MD :1990???Age:33 Y???Sex:Female D ate:10/25/2023 Address:[address] [place], [place] [id number] Pcp:Loretta Larkin Subjective: * Chief Complaints: * ??? * HPI: ???incontinence:? I saw Alejandra in consultation today in regard to further evaluation of her intermittent diarrhea, abdominal cramps, and vomiting. ?I last saw Alejandra in July of 2020. At that time she was doing well from a GI standpoint. She had been on mesalamine at that time for a questionable underlying diagnosis of lymphocytic colitis but as we had discussed in the past that diagnosis was never definitive. Subsequent to that visit she stopped her mesalamine sometime in probably 2020 and has remained off of that. She describes that for the most part she has been doing well but does have intermittent flareups of abdominal cramps, diarrhea, and vomiting. However, these are usually fairly short-lived and not associated with any signs of bleeding, jaundice, nor fevers. ?Her most recent episode was just last month but ultimately this was felt to be a Norovirus infection in relation to her job at her [employer]. I did send over a prescription for Zofran which did help her nausea. I did check some laboratories in September which revealed a normal CBC, liver profile, chemistries and renal function, and lipase. ?Presently she feels well and is back to baseline. She describes her bowel movements have been fairly regular and without any significant diarrhea. She enjoys a good appetite, without any significant heartburn nor dysphagia. She denies any ongoing abdominal pain, jaundice, fevers, nor weight loss. ?Her family history is notable for Crohn's disease in her father and colon cancer in a paternal grandfather. * ROS:?General/Constitutional:?Admits?Change in appetite,?Decreased.?Chills?denies.?Admits?Fatigue.?Ophthalmologic:?Comments?all negative.?ENT:?Comments?all negative.?Respiratory:?hemoptysis?denies.?Cough?denies.?Cardiovascular:?Chest pain?denies.?Orthopnea?denies.?Gastrointestinal:?Comments?See HPI for details.?Genitourinary:?Hematuria?denies.?Dysuria?denies.?Musculoskeletal:?Painful joints?denies.?Weakness?denies.?Skin:?Itching?denies.?Rash?denies.?Neurologic:?Headache?denies.?Seizures?denies.?Psychiatric:?Comments?all negative.? * Medical History:? * Surgical History:?C-sections * Hospitalization/Major Diagno stic Procedure:?No Hospitalization History. * Family History:?Father: dece ased, Crohn's Colitis.?Mother: alive, Lupus.?Paternal Grand Father: , diagnosed with Colon cancer.? * Social History:?Tobacco Use:?Tobacco Use/Smoking?Are you a: nonsmoker.?Drugs/Alcohol:?Alcohol Screen?Points: 0, Interpretation: Negative.?Miscellaneous:?Children: 4. Marital status: Significant other. 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 ???Nonsmoker; no sig alcohol. * Medications:?TakingVentolin HFA Ondansetron 4 MG Tablet Disintegrating 1 tablet on the tongue and allow to dissolve Orally Every 4 to 6 hours as needed for nauseaTaking Ventolin HFA Taking Ondansetron 4 MG Tablet Disintegrating 1 tablet on the tongue and allow to dissolve Orally Every 4 to 6 hours as needed for nauseaDiscontinuedAsacol HD 800 MG Tablet Delayed Release 1 tablet Orally BIDDicyclomine HCl 10 MG Capsule 1 or 2 Orally Take 30 minutes before meals to try to prevent cramps and diarrheaMedication List reviewed and reconciled with the patientDiscontinued Asacol HD 800 MG Tablet Delayed Release 1 tablet Orally BIDDiscontinued Dicyclomine HCl 10 MG Capsule 1 or 2 Orally Take 30 minutes before meals to try to prevent cramps and diarrheaMedication List reviewed and reconciled with the patient * Allergies:?Ammon brenner[Allergies Verified] Objective: * Vitals:?Wt: 172 lbs, Ht: 59. 5 in, BMI:34.15 Index, BP: 00/00 mm Hg, Temp: 97.5. * Examination: ???General Examination: ?GENERAL APPEARANCE:?pleasant, well nourished, well developed, in no acute distress.?EYES:?sclera non-icteric.?ORAL CAVITY:?mucosa moist.?NECK/THYROID:?no cervical lymphadenopathy, neck supple.?SKIN:?nonjaundiced, no spider angiomata.?HEART:?S1, S2 normal.?LUNGS:?clear to auscultation bilaterally.?ABDOMEN:?normal bowel sounds, no guarding or rigidity, no guarding or rigidity, no masses palpable, soft, nontender, nondistended.?EXTREMITIES:?no edema.?NEUROLOGIC:?alert and oriented.? Assessment: * Assessment: 1.?Irritable bowel syndrome with diarrhea - K58.0 (Primary)? Overall, Alejandra appears q uite well. We did review her previous history and current history. I advised her that at this point I doubt she has any underlying type of colitis and her symptoms seem very consistent with intermittent irritable bowel syndrome, as well as the above mentioned episode of Norovirus she contracted at work. We did review those diagnoses in detail today. I advised her that since things are stable she can continue to use p.r.n. dicyclomine and I will send her a new prescription for that. I also advised her to use Zofran as needed for any intermittent nausea. At this point since she appears well I don't think she needs any diagnostic testing nor any other therapeutic intervention, including endoscopic testing. If things remain stable I advised her that she could simply see me on a p.r.n. basis. Alejandra was very comfortable with that plan. Thank you again for allowing me to participate in Alejandra's care. I shall continue to keep you advised of her progress. Plan: * Treatment: 2.?Others? Refill Dicyclomine HCl Capsule, 10 MG, 1 or 2, Orally, Every 6 hours as needed for abdominal cramps/diarrhea, 30 days, 40, Refills 3.?? * Procedure Codes:?1036F TOBAC CO NON-[id number] BP SCR NOT PRFRM REC REASON NOS * Preventive Medicine:? ??Counseling:?Care goal follow-up plan:?Above Normal BMI Follow-up?Giving encouragement to exercise,?BMI management provided?Yes.? * Follow Up:?prn * * Sign off status: Completed true * Provider:?Jairo Corea MD Date:? 024 Generated for Marcella valverde/[place]/Jvsmitting on:?04/02/2025 06:09 PM EDT History and Physical Notes * HPI (History of Present Illness) Category Sub-Category Detail Notes Category Not es incontinence I saw Alejandra in consultation today in regard to further evaluation of her intermittent diarrhea, abdominal cramps, and vomiting. I last saw Alejandra in July of 2020. At that time she was doing well from a GI standpoint. She had been on mesalamine at that time for a questionable underlying diagnosis of lymphocytic colitis but as we had discussed in the past that diagnosis was never definitive. Subsequent to that visit she stopped her mesalamine sometime in probably 2020 and has remained off of that. She describes that for the most part she has been doing well but does have intermittent flareups of abdominal cramps, diarrhea, and vomiting. However, these are usually fairly short-lived and not associated with any signs of bleeding, jaundice, nor fevers. Her most recent episode was just last month but ultimately this was felt to be a Norovirus infection in relation to her job at her [employer]. I did send over a prescription for Zofran which did help her nausea. I did check some laboratories in September which revealed a normal CBC, liver profile, chemistries and renal function, and lipase. Presently she feels well and is back to baseline. She describes her bowel movements have been fairly regular and without any significant diarrhea. She enjoys a good appetite, without any significant heartburn nor dysphagia. She denies any ongoing abdominal pain, jaundice, fevers, nor weight loss. Her family history is notable for Crohn's disease in her father and colon cancer in a paternal grandfather. Examination Category Sub-Category Detail Notes Category Not es General Examination GENERAL APPEARANCE: pleasant , well nourished, well developed, in no acute distress HEAD: EYES: sclera non-icteric EARS: NOSE: THROAT: NECK/THYROID: no cervical lymphade nopathy, neck supple HEART: S1, S2 normal CHEST: LUNGS: clear to auscultatio n bilaterally ABDOMEN: normal bowel sounds, no guarding or rigidity, no guarding or rigidity, no masses palpable, soft, nontender, nondistended NEUROLOGIC: alert and oriented SKIN: nonjaundiced, no spi mohinder angiomata EXTREMITIES: no edema PERIPHERAL PULSES: BACK: BREASTS: MUSCULOSKELETAL: MALE GENITOURINARY: LYMPH NODES: RECTAL EXAM: FEMALE GENITOURINARY: ORAL CAVITY: mucosa moist
== END 2025-04-02 15:51 | disposition home or self-care (01) ==
LOC: HO.LAB 15:50
PROVIDERS: PCP Internal Medicine; Visit Provider Internal Medicine
DX: E66.813 Obesity, class 3 (principal); G25.0 Essential tremor; J45.909 Unspecified asthma, uncomplicated; Z68.37 Body mass index [BMI] 37.0-37.9, adult
CPT/HCPCS: 36415; 80053; 84443; 85025

== ENCOUNTER 2025-08-12 11:10 | Outpatient (AMB) | payer OTHER, SELFPAY ==
[2025-08-12 11:15] VITALS: BP 102/66; BMI 35.9
--- NOTE | 2025-08-12 11:15 | MHC.OFFVIS ---
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 She reports recent chemical , quant levels were monitored by her primary care. She is uncertain if she wants a future . History of for , and high-risk with frequent epiodes of labor concerns. She denies vaginal itching or irritation. STI screening offered; she declined. She tries to eat healthy and stays active with exercise. Family history of breast cancer. Last pap smear 2022, negative. [facility] Medical History Abnormal Pap smear of cervix Ulcerative colitis Eczema Asthma Colitis Asthma Surgical History Hx of breast augmentation Hx of section Hx of breast augmentation Hx of colonoscopy Previous section Family History Mother Hypertension Father Asthma Brother No problems noted. Brother No problems noted. Son No problems noted. Son No problems noted. Son Asthma Autism Daughter ADHD Maternal Aunt Cervical cancer History of breast cancer Maternal Grandmother Cervical cancer Paternal Grandfather Colon cancer Paternal Grandmother Ovarian cancer Social History Alcohol intake: current Alcohol intake frequency: holidays/special occasions only Alcohol type: wine Patient Tobacco Use Status: Never used Tobacco Sexual orientation: Straight/Heterosexual Gender identity: Female Female Reproductive History Menstrual Age of Menarche: 9 control method: implanted Total pregnancies: 9 Full term: 4 Number of Living Children: 4 Ab spontaneous: 5 Date of last pap smear: 07/18/23 (neg pap and hpv) History of abnormal pap smear: Yes (03/07 colpo juan 1 04/10 ascus +hpv) Review of Systems Const All systems reviewed & are unremarkable except as noted in HPI and below Reports as per HPI Eyes Reports no additional complaints ENT Reports no additional complaints Card Reports no additional complaints Resp Reports no additional complaints GI Reports as per HPI and Reports no additional complaints Reports as per HPI Musc Reports no additional complaints Skin/Breast Reports as per HPI Neuro Reports no additional complaints Psych Reports no additional complaints Endo Reports no additional complaints Devaughn/Lymph Reports no additional complaints Aller/Immun Reports no additional complaints Physical Exam Vital Signs: Last Vital Signs BP 102/66 08/12/25 11:15 BMI result Body Mass Index 35.9 Const General: cooperative, healthy appearing, no acute distress, well developed and alert Orientation/consciousness: patient oriented x3 HEENT Head: Yes normal to inspection Eyes General: appearance normal, both eyes and all related structures Neck Neck: Yes normal visual inspection Thyroid: Thyroid normal Chest Other: Bilateral reduction postsurgical scarring Chest palpation & inspection: normal inspection of the chest and other (no puckering, dimpling, peau de orange, retraction, discharge, masses) Breast/axilla inspection: normal inspection of the breasts Breast/axilla palpation: normal palpation of the breasts Resp Effort & Inspection: normal respiratory effort GI Inspection: Yes normal to inspection and Yes scar Palpation (GI): Soft to palpation Rectal Exam - Female: deferred General: Yes bladder normal to palpation External Female Exam: normal external appearance and normal appearance of the urethra Speculum Exam - Vagina: normal appearance of the vagina, normal palpation and normal vaginal discharge Speculum Exam - Cervix: normal appearance of the cervix and normal palpation Bimanual exam- vagina & uterus: normal bimanual exam, normal palpation, uterine size normal, bladder normal to palpation, normal palpation and non-tender Bimanual Exam- Adnexa, other: no masses Skin General skin exam: no rashes or lesions noted Rashes: no rashes Neuro General: patient oriented x3 Cognition (Neuro): normal cognition Extrem General: Yes normal to inspection Psych Attitude: cooperative Thought process: Normal thought process present Assessment & Plan Assessment & Plan (1) Encounter for well woman exam with routine gynecological exam: Code(s): Z01.419 - Encounter for gynecological examination (general) (routine) without abnormal findings Plan Discussed: Current recommendations for pap smears per ASCCP guidelines. Breast awareness and periodic breast exams. Maintain a healthy lifestyle including a well balanced diet and routine exercise. Discussed process for Nexplanon exchange we will sign prior authorization forms today and wait to submit until she decides whether she wants to have an exchange or just removal. Also she we will make a consult appointment with her last reed repairer who did her to look at the pros and cons for future and delivery prior to contemplating . Patient verbalizes understanding and agrees to the plan of care. She was given opportunity to ask questions and all questions were answered to the best of my ability. RTO in one year for annual distribution manager examination. This note is constructed using voice recognition software. While every effort has been made to ensure accuracy, cup machine operator errors may have been included. Coding Level of Care Code Est Pt Prev Care 18-39y(67038) Diagnoses Encounter for well woman exam with routine gynecological exam Z01.419
--- OUTSIDE RECORDS SUMMARY | 2025-08-12 15:12 | XMS_ITS | Clinical Summary ---
Author Organization Patient Business Ser [facility] Address [address] [place] [address] Care Team Providers Care Estimate Clerk Name Role Phone Loretta Larkin MD Primary Care Provider [phone] Encounters Date Type Department Care Team Description 06/29/2025 Telephone Obstetrics and Gynecology - [address] [place] [phone] Trevor Lewis CNM 06/26/2025 Telephone Obstetrics and Gynecology - [address] [phone] Trevor Lewis CNM from Last 3 Months Surgical History Surgery Date Site/Laterality Comments SECTION PROCEDURE: HISTORICAL DELIVERY BREAST SURGERY Bilateral PROCEDURE: [place] BREAST AUGMENTATION WITH IMPLANT Medical History Medical History Date Comments Seasonal allergies DX:Seasonal a llergies Mild intermittent asthma, uncomplicated DX:Mild intermittent asthma, uncomplicated Family History Medical History Relation Name Comments Eczema Brother 1 Seizures Brother 2 Asthma Father Asthma Maternal Grandfather Diabetes Maternal Grandfather Lung cancer Maternal Grandfather Colon cancer Maternal Grandmother Diabetes Maternal Grandmother Other: Lupus Mother Lung cancer Paternal Grandfather Relation Name Status Comments Brother 1 Alive Brother 2 Alive Brother 3 Alive Father Maternal Grandfather Maternal Grandmother Mother Alive Paternal Grandfather Paternal Grandmother Alive Social History Tobacco Use Types Packs/Day Years Used Date Smoking Tobacco: Never Smokeless Tobacco: Never Alcohol Use Standard Drinks/Week Comments Not Currently 0 (1 standard drink = 0.6 oz pur e alcohol) Comments Unknown Sex and Gender Information Value Date Recorded Sex Assigned at Not on file Legal Sex Female 10:14 AM EDT Gender Identity Not on file Sexual Orientation Not on file Obstetrics History Last Filed Vital Signs Vital Sign Reading Time Taken Comments Blood Pressure 114/70 11/22/2022 9:57 AM EST Pulse 79 11/22/2022 9:57 AM EST Temperature - - Respiratory Rate - - Oxygen Saturation - - Inhaled Oxygen Concentration - - Weight 80.3 kg (177 lb) 11/22/2022 9:57 AM EST Height 154.9 cm (5' 1 ) 09/12/2022 10:16 AM EST Body Mass Index 33.44 09/12/2022 10:16 AM EST Plan of Treatment Health Maintenance Due Date Last Done Comments Hepatitis B Vaccines (1 of 3 - 19+ 3-dose series) 2011 Pneumococcal Vaccine: Pediatrics (0 to 5 Years) and At-Risk Patients (6 to 49 Years) (2 of 2 - PCV) 05/15/2016 05/15/2015 HPV Vaccines (1 - 3-dose SCDM series) 2019 Cholesterol Screening (Lipid Panel) 03/02/2022 HIV Screening 03/02/2022 Hepatitis C Screening 03/02/2022 Social Influencers of Health Screening 03/02/2022 Depression Screening 10/22/2024 Cervical Cancer Screening: Pap Smear 04/03/2025 04/03/2022 COVID-19 Vaccine ( season) 2025 02/18/2021, 01/28/2021 Influenza Vaccine (#1) 2025 07/24/2024 DTaP,Tdap,and Td Vaccines (5 - Td or Tdap) 08/26/2033 08/26/2023, 08/04/2022, 06/20/2019, Additional history exists RSV Immunization Adult Patients (1 - 1-dose 75+ series) 2067 HIB Vaccines Aged Out No longer eligi ble based on patient's age to complete this topic Hepatitis A Vaccines Aged Out No long er eligible based on patient's age to complete this topic IPV Vaccines Aged Out No longer eligi ble based on patient's age to complete this topic MMR Vaccines Aged Out No longer eligi ble based on patient's age to complete this topic Meningococcal ACWY Vaccine Aged Out N o longer eligible based on patient's age to complete this topic Meningococcal B Vaccine Aged Out No l onger eligible based on patient's age to complete this topic RSV Immunization Patients Under 20 months Aged Out No longer eligible based on patient's age to complete this topic Varicella Vaccines Aged Out No longer eligible based on patient's age to complete this topic Procedures Procedure Name Priority Date/Time Associated Diagnosis Comments HCG, QUANTITATIVE Routine 06/26/2025 3:0 6 PM EDT Irregular periods PAP SMEAR Routine 04/03/2022 from Last 3 Months or Most Recently Relevant to Health Maintenance Results * HCG, quantitative (06/26/2025 3:06 PM EDT) hCG Quant <1 mIU/mL LAB CHEMISTRY METHOD 06/26/2025 9:31 PM EDT [facility] Blood Venous blood specimen / Unknown Venipuncture / Unknown 06/26/2025 3:06 PM EDT 06/26/2025 3:08 PM EDT Narrative [facility] - 06/26/2025 9:31 PM EDT Quantitative HCG Reference Ranges Time after Conception MIU/ML 0.2-1 Week 5-50 1-2 Weeks 50-500 2-3 Weeks 100-5,000 3-4 Weeks 500-10,000 4-5 Weeks 1,000-50,000 5-6 Weeks 10,000-100,000 6-8 Weeks 15,000-200,000 2-3 Months 10,000-100,000 2nd Trimester 1,000-94,000 3rd Trimester 2,500-90,000 Non- Females 1-3 Penny Fontanez CNM LAB BLOOD ORDERABLES Final Re sult [facility] [address] [place] [address], * Pap smear (04/03/2022) 04/03/2022 Narrative HISTORICAL TESTING LAB RESULTING AGENCY - 04/11/2022 4:30 PM EDT [id number] THINPREP PAP, IMAGED: NEGATIVE FOR SQUAMOUS INTRAEPITHELIAL LESION AND MALIGNANCY . REACTIVE CELLULAR CHANGES. BLANKA LIMA , CHICHO(ASCP) (CASE SCREENED 04 10 2022) VIVIANA BROWN M.D. , PATHOLOGIST (CASE ELECTRONICALLY SIGNED 04 11 2022) ADEQUACY: SATISFACTORY ENDOCERVICAL/TRANSFORMATION ZONE COMPONENT PRESENT. SOURCE: THINPREP PAP HPV IF ASCUS, CERVICAL, IMAGED CLINICAL INFORMATION: HPV IF DIAGNOSIS OF ASCUS. , PAP HX NEGATIVE. [Z12.4] Elyssa Goodman DO LAB CYTOLOGY ORDERABLES Final Result HISTORICAL TESTING LAB RESULTING AGENCY from Last 3 Months or Most Recently Relevant to Health Maintenance Insurance [facility] [employer] Care Teams Estimate Clerk Relationship Specialty Start Date End Date Loretta Larkin MD [address] [place] [address] PCP - General Internal Medicine 01/05/21
--- OUTSIDE RECORDS SUMMARY | 2025-08-12 15:12 | XMS_ITS | Patient Health Record ---
Author Organization [facility] Address [address] [place] [address] Care Team Providers Care Organic Lab Worker Name Role Phone Chaya Loretta Primary Care Provider UnavailJairo Valadez Unavailable [phone] Allergies Allergen (clinical drug ingredient) Drug/Non Drug Allergy documented on EMR Reaction Allergy Type Onset Date Status Latex Gloves Unknown Drug Allergy Acti ve banana allergenic extract bananas (uncoded) Unknown Allergy Active Reason For Referral No Information Medications Medication SIG (Take, Route, Fr equency, Duration) Notes Start Date End Date Status Dicyclomine HCl 10 MG TAKE 1-2 CAPSULES BY MOUTH EVERY 6 HOURS NEEDED FOR ABDOMINAL CRAMPS/DIARRHEA 30 DAYS; Duration: 90 Active Ondansetron 4 MG 1 tablet on the tong ue and allow to dissolve Orally Every 4 to 6 hours as needed for nausea; Duration: 30 day(s) 10/04/2023 Acti ve Ventolin HFA Active Immunizations Vaccine Route Administration Date Status Comme nts Influenza Unknown 09/21/2019 Administered Problems Problem Type SNOMED Code ICD Code Onset Dates Problem Status W/U Status Risk Notes Problem Diarrhea (32555532) Diarrhea (R19.7) Active confirmed Problem Irritable bowel syndrome with diarrhea (177504605) Irritable bowel syndrome with diarrhea (K58.0) Active confirmed Problem Family History of Cancer of Colon (Situation) (707120982) Family history of colon cancer (Z80.0) Active confirmed Problem Lymphocytic colitis (5444947929) Lymphocytic colitis (K52.89) Active confirmed Problem Diarrhea of presumed infectious origin (35799126) Diarrhea of presumed infectious origin (R19.7) Active confirmed Problem Acute vomiting (09677483) Acute vomiting (R11.10) Active confirmed Plan Of Treatment Pending Test Test Name Order Date CHEM [...] Insured Coverage Start Date Coverage End Date [facility] [employer] [address] [place] [address] [id number] ABNER PATHAK Self - patient is the insured MEDICAID OF [place] [address] [place] [address] [id number] RAFIQ ZAMORANO ABNER Self - patient is the insured Medical (General) History Medical History History ICD Code Denies [place],DM,CVA,Lung disease,renal dise ase Miscarriage in 05/2014 Asthma. [...] Norovirus 09/2023 contracted at work in the half-way Surgical History Surgery Date(Month/Year) C-sections
== END 2025-08-12 12:03 | disposition home or self-care (01) ==
LOC: HO.HWS 11:10
PROVIDERS: PCP Internal Medicine; Visit Provider Advanced Practice Midwife
DX: Z01.419 Encounter for gynecological examination (general) (routine) without abnormal findings (principal)
CPT/HCPCS: 99395; 99459

== ENCOUNTER → 2025-08-12 11:10 | Outpatient (BNVA) | payer OTHER, SELFPAY | PROVIDERS: PCP Internal Medicine; Visit Provider Advanced Practice Midwife | DX: Z01.419 Encounter for gynecological examination (general) (routine) without abnormal findings (principal) | CPT/HCPCS: 99395 ==

== ENCOUNTER 2025-09-23 08:13 | Outpatient (AMB) | payer OTHER, SELFPAY ==
--- OUTSIDE RECORDS SUMMARY | 2025-09-23 08:16 | XMS_ITS | Clinical Summary ---
Author Organization Patient Business Ser [facility] Address [address] [place] [address] Care Team Providers Care Efficiency Engineer Name Role Phone Loretta Larkin MD Primary Care Provider [phone] Encounters Date Type Department Care Team Description 06/29/2025 Telephone Obstetrics and Gynecology - [place] [address] [place] [address] Trevor Lewis CNM 06/26/2025 Telephone Obstetrics and Gynecology - [address] [address] Trevor Lewis CNM from Last 3 Months Surgical History Surgery Date Site/Laterality Comments SECTION PROCEDURE: HISTORICAL DELIVERY BREAST SURGERY Bilateral PROCEDURE: TX BREAST AUGMENTATION WITH IMPLANT Medical History Medical [...] LAB CHEMISTRY METHOD 06/26/2025 9:31 PM EDT [facility] Blood Venous blood specimen / Unknown Venipuncture / Unknown 06/26/2025 3:06 PM EDT 06/26/2025 3:08 PM EDT Narrative [facility] - 06/26/2025 9:31 PM EDT Quantitative HCG Reference Ranges Time after Conception MIU/ML 0.2-1 Week 5-50 1-2 Weeks 50-500 2-3 Weeks 100-5,000 3-4 Weeks 500-10,000 4-5 Weeks 1,000-50,000 5-6 Weeks 10,000-100,000 6-8 Weeks 15,000-200,000 2-3 Months 10,000-100,000 2nd Trimester 1,000-94,000 3rd Trimester 2,500-90,000 Non- Females 1-3 Penny Fontanez CNM LAB BLOOD ORDERABLES Final Re sult [facility] [address] [place] [address], * Pap smear (04/03/2022) 04/03/2022 Narrative HISTORICAL TESTING LAB RESULTING AGENCY - 04/11/2022 4:30 PM EDT [id number] THINPREP PAP, IMAGED: NEGATIVE FOR SQUAMOUS INTRAEPITHELIAL [...] Most Recently Relevant to Health Maintenance Insurance [facility] PUBLIC PLANS Care Teams Efficiency Engineer Relationship Specialty Start Date End Date Loretta Larkin MD [address] [place] [address] PCP - General Internal Medicine 01/05/21
--- NOTE | 2025-09-23 10:09 | A.OFFVIS_ITS ---
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 Allergies banana (BANANA) Allergy (Severe, Verified 09/23/25 10:09) ANAPHYLAXIS cantaloupe (CANTALOUPE) Allergy (Severe, Verified 09/23/25 10:09) HIVES ketorolac (From TORADOL) Allergy (Intermediate, Verified 09/23/25 10:09) HIVES latex (LATEX) Allergy (Mild, Verified 09/23/25 10:09) HIVES peach (PEACH) Allergy (Mild, Verified 09/23/25 10:09) HIVES plum (PLUM) Allergy (Mild, Verified 09/23/25 10:09) HIVES latex Allergy (Unknown, Uncoded 09/23/25 10:09) hives Medication List - Last Reconciled 09/23/25 by Dirk Bowen MD albuterol sulfate 90 mcg/actuation (ProAir HFA) 2 puffs inhalation Q4-6H PRN albuterol sulfate 90 mcg/actuation 0 mcg inhalation cetirizine 10 mg PO DAILY epinephrine IM etonogestrel (Nexplanon) subdermal fluticasone propionate 50 mcg/actuation intranasal fluticasone propionate 110 mcg/actuation (Flovent HFA) 2 puffs inhalation BID HPI HPI 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: Details: Start time: 10.03m, End time: 10.57am ?I spent 49 minutes speaking with the patient on the phone plus an additional 5 minutes reviewing and updating records for a total of 54 minutes HPI Comments Details: Previous weight loss efforts: RO (Semaglutide: had to stop due to nausea, constipation and diarrhea), exercise, WW Wakes up: 6am, Sleeps: 8pm Breakfast: 8am (Breakfast sandwich) Lunch: 1pm (chicken sandwich, salad) Dinner: 5pm (chicken, rice and beans, pasta) Snacks: 3pm (meat, cheese and crackers) Exercise: treadmill (inclines and tracks calories), Elliptical (tracks calories) Beverages: Coffee: (2 cups/d with creamer), Tea: none, Soda: none, Juice: Hawaian Punch (6 glasses/d), ETOH: none PFSH Medical History (Updated 09/23/25 @ 10:38 by Dirk Bowen MD) BMI 35.0-35.9,adult Abnormal Pap smear of cervix Ulcerative colitis Eczema Asthma Colitis Asthma Surgical History Hx of breast augmentation Hx of section Hx of breast augmentation Hx of colonoscopy Previous section Family History Mother Hypertension Father Asthma Brother No problems noted. Brother No problems noted. Son No problems noted. Son No problems noted. Son Asthma Autism Daughter ADHD Maternal Aunt Cervical cancer History of breast cancer Maternal Grandmother Cervical cancer Paternal Grandfather Colon cancer Paternal Grandmother Ovarian cancer Social History Alcohol intake: current Alcohol intake frequency: holidays/special occasions only Alcohol type: wine Patient Tobacco Use Status: Never used Tobacco Sexual orientation: Straight/Heterosexual Gender identity: Female Female Reproductive History Menstrual Age of Menarche: 9 Telehealth Telehealth Telehealth Platform: Telephone Location of provider rendering services: practice address Location of patient: address on file Patient Identification confirmed using: Name, : Yes Telehealth method: voice only Patient verbally consented to treatment: Yes Patient verbally consented to billing insurance company: Yes Patient informed of any privacy concerns related to visit: Yes Minutes spent on Phone/Video with Pt.: 54 Assessment & Plan Assessment & Plan (1) Obesity: Code(s): E66.9 - Obesity, unspecified Category: Medical Qualifiers: Obesity type: due to excess calories Obesity classification: adult class 2 (BMI 35 - 39.9) Serious obesity comorbidity presence: with serious comorbidity Body mass index: BMI 35.0-35.9 Qualified Code(s): E66.812 - Obesity, class 2; Z68.35 - Body mass index [BMI] 35.0-35.9, adult Plan: 1.? Plan for lap sleeve gastrectomy. If diaphragmatic or ventral hernias are present at time of surgery, these will be repaired laparoscopically as well. I emphasized the importance of close follow-up, adherence to instructions and good communication. The surgery does not replace the need to change your lifestlyle which is the cause of the obesity problem. The surgery provides the motivation to try again to change your lifestyle, it reduces the appetite and make the transition to a better lifestyle easier and doubles the amount of weight you would lose compared to doing the lifestyle change without the surgery. You will need to be on a liquid diet with protein shakes for 2 weeks before surgery to maximize weight loss and boost your nutritional status to recover better from surgery and also for the first two weeks after surgery to let the stomach heal before we introduce other foods. After the first 2 weeks we will introduce protein bars and soft foods like scrambled eggs, cottage cheese and yogurt and after the 6th week will introduce meat, fish and cooked vegetables in small amounts. Over time you should be able to eat everything in small amounts. Side effects like nausea, vomiting, heartburn or abdominal pain are not common in the practice unless you are not following in the practice. This operation requires lifetime commitment to following in our practice and communication with me. You will much less weight and experience side effects if you don?t communicate or not following in the practice. Complications are rare and in our practice is about 1/10 of the national average. However, you can develop bleeding that may require transfusion (hasn?t happened for year in the practice), you may from complications (we did not have any deaths in the practice) and infections. Infections are usually a result of breakdown in communication or not understanding or following directions correctly. They are difficult to treat, they can happen during the first 6 weeks, they may require to be in the hospital for weeks or even months, not being able to eat by mouth and you may have drains and surgeries to try and correct the issue. Other risks and complications include possible conversion to an open procedure, leaks, small bowel obstruction, blood clots, cardiac, or pulmonary complications, as custodial complications such as ulcers, insufficient weight loss and vitamin deficiencies. 2. Nutritional counseling. Start with one CELEBRATE REBUILD protein (buy online with the link I gave you) shake (ONE scoop in 8oz low fat unsweetened almond milk) at 7am-9am, 1 protein bar (CELEBRATE protein bar, buy at [facility], buy online with the link I gave you) ) at 10am-12pm, another CELEBRATE REBUILD protein shake (ONE scoop in 8oz low fat unsweetened almond milk) at 1pm- 3pm, another Celebrate protein bar at 4pm-6pm, dinner at 7pm (8 forks of protein and 8 forks of salad/vegetables). So you do 2 protein shakes, 2 protein bars and one meal per day. Meal to include lean meat (beef, fish, pork, turkey, chicken), or indonesian yogurt, or egg whites, or beans with a salad with olive oil and fruits (berries, pears, apples, kiwi). Avoid salt, breads, potatoes, rice, pasta, desserts. 3. Each shake would be drunk slowly, like coffee in a period of 2 hours. 4. Cut each bar in 4 pieces and eat each piece in 30min ?to make each bar last 2 hours. 5. I emphasized the importance of measuring accurately the food portion and measure it when serving the food in plate 6. The meal portions include 8 full-size forks of meat and 8 full-size forks of salad. You always eat the meat portion but you can replace up to 4 forks for salad/vegetables with rice, potatoes or pasta, or a fruit ?if you like. The less you do it the better weight loss will be. 7. One full-size fork is what it can be scooped on the fork without falling aside and not what can be bit with the fork. Use regular forks like those you find in a typical restaurant. 8.? Please buy the body composition scale we discussed and send me weight measurements as soon as possible and then once a week. Always include your diet and exercise plan. 9. Start Elliptical with an incline of 2.0 and resistance of 4.0. Increase resistance by 1 every 3 min to a max resistance of 10.0, and repeat cycles for 300 calories. 10. Start treadmill with an incline of 2.0 and speed of 3.0 mph. Increase incline by 1 every 3 min to a max incline of 8.0, stay 3min at 8.0 and then return to 2.0 and repeat same steps until calorie goal is met. Goal is to burn 2000 calories per week on exercise, which means either 300 calories daily. 11. You can use only the treadmill or elliptical, or you can alternate between one and the other every other day, or you can do both daily for 150 caloires. Working out on the treadmill or elliptical should not be replaced by the hop strainer work-up you do. 12.?It is important of avoiding and for at least 18 months postoperatively and has been discussed at the infosession. 13. Goal is to lose at least 1.5-2lbs per week 14. Goal to lose 10% of your weight before surgery, which is about 20lbs. Ultimate weight goal: 160lbs before surgery 15. Please follow the diet plan exactly without any change. If you don't like something about the plan or you feel hungry you need to communicate with me so I can help you revise the plan. You should not change the plan yourself 16. To be scheduled for EGD to assess the stomach's anatomy. The possibility of biopsies was discussed. Patient needs to avoid use of NSAIDs and aspirin for 1 week prior to EGD. You must be on liquids only the day before your endoscopy. Risks of perforation and bleeding was discussed with the patient. This will be an outpatient procedure with IV sedation. Orders: Orders Insulin Today E66.9 - Obesity, unspecified, J45.909 - Unspecified asthma, uncomplicated, Z68.35 - Body mass index [BMI] 35.0-35.9, adult Hemoglobin A1c Today E66.9 - Obesity, unspecified, J45.909 - Unspecified asthma, uncomplicated, Z68.35 - Body mass index [BMI] 35.0-35.9, adult H Pylori Breath Test Today E66.9 - Obesity, unspecified, J45.909 - Unspecified asthma, uncomplicated, Z68.35 - Body mass index [BMI] 35.0-35.9, adult Zinc Today E66.9 - Obesity, unspecified, J45.909 - Unspecified asthma, uncomplicated, Z68.35 - Body mass index [BMI] 35.0-35.9, adult Vitamin A Today E66.9 - Obesity, unspecified, J45.909 - Unspecified asthma, uncomplicated, Z68.35 - Body mass index [BMI] 35.0-35.9, adult TSH reflex Free T4 Today E66.9 - Obesity, unspecified, J45.909 - Unspecified asthma, uncomplicated, Z68.35 - Body mass index [BMI] 35.0-35.9, adult Ferritin Today E66.9 - Obesity, unspecified, J45.909 - Unspecified asthma, uncomplicated, Z68.35 - Body mass index [BMI] 35.0-35.9, adult Vitamin D 25-OH Total Today E66.9 - Obesity, unspecified, J45.909 - Unspecified asthma, uncomplicated, Z68.35 - Body mass index [BMI] 35.0-35.9, adult FL upper GI w air Today E66.9 - Obesity, unspecified, J45.909 - Unspecified asthma, uncomplicated, Z68.35 - Body mass index [BMI] 35.0-35.9, adult Complete Blood Count Auto Diff Today E66.9 - Obesity, unspecified, J45.909 - Unspecified asthma, uncomplicated, Z68.35 - Body mass index [BMI] 35.0-35.9, adult Lipid Panel Today E66.9 - Obesity, unspecified, J45.909 - Unspecified asthma, uncomplicated, Z68.35 - Body mass index [BMI] 35.0-35.9, adult IRON PROFILE Today E66.9 - Obesity, unspecified, J45.909 - Unspecified asthma, uncomplicated, Z68.35 - Body mass index [BMI] 35.0-35.9, adult Comprehensive Met. Panel Today E66.9 - Obesity, unspecified, J45.909 - Unspecified asthma, uncomplicated, Z68.35 - Body mass index [BMI] 35.0-35.9, adult Vitamin B12 and Folate Today E66.9 - Obesity, unspecified, J45.909 - Unspecified asthma, uncomplicated, Z68.35 - Body mass index [BMI] 35.0-35.9, adult C Reactive Protein Today E66.9 - Obesity, unspecified, J45.909 - Unspecified asthma, uncomplicated, Z68.35 - Body mass index [BMI] 35.0-35.9, adult Vitamin B1 Today E66.9 - Obesity, unspecified, J45.909 - Unspecified asthma, uncomplicated, Z68.35 - Body mass index [BMI] 35.0-35.9, adult US abdomen comp w elastography Today E66.9 - Obesity, unspecified, J45.909 - Unspecified asthma, uncomplicated, Z68.35 - Body mass index [BMI] 35.0-35.9, adult XR chest 2V Today E66.9 - Obesity, unspecified, J45.909 - Unspecified asthma, uncomplicated, Z68.35 - Body mass index [BMI] 35.0-35.9, adult ECG 12 lead EKG Today E66.9 - Obesity, unspecified, J45.909 - Unspecified asthma, uncomplicated, Z68.35 - Body mass index [BMI] 35.0-35.9, adult Referrals Behavioral Health Referral E66.9 - Obesity, unspecified, J45.909 - Unspecified asthma, uncomplicated, Z68.35 - Body mass index [BMI] 35.0-35.9, adult Nutrition/Dietitian Referral E66.9 - Obesity, unspecified, J45.909 - Unspecified asthma, uncomplicated, Z68.35 - Body mass index [BMI] 35.0-35.9, adult
[2025-09-23 10:23] VITALS: BMI 35.2
== END 2025-09-23 10:58 | disposition home or self-care (01) ==
LOC: HO.HBS 08:13
PROVIDERS: PCP Internal Medicine; Visit Provider Surgery
DX: E66.812 Obesity, class 2 (principal); Z68.35 Body mass index [BMI] 35.0-35.9, adult
CPT/HCPCS: 98015

== ENCOUNTER 2025-09-24 09:24 | Outpatient (REF) | payer OTHER, SELFPAY ==
--- NOTE | ~2025-09-24 | XR_ITS ---
EXAMINATION: XR CHEST CLINICAL INFORMATION: E66.9 - Obesity, unspecified COMPARISON: October 20, 2018 TECHNIQUE: PA and lateral views FINDINGS: No hyperinflation. No consolidation, pleural effusion or pneumothorax. Cardiomediastinal silhouette size is normal. Osseous structures are intact. Patient's large body habitus/obesity. XR/XR chest 2V IMPRESSION: Normal chest x-ray Electronically signed by: Bernard Vogel MD 09/24/2025 09:54 AM EST
--- NOTE | 2025-09-24 09:28 | ECG_ITS ---
Test Reason : OBESITY Blood Pressure : */* mmHG Vent. Rate : 70 BPM Atrial Rate : 70 BPM P-R Int : 148 ms QRS Dur : 74 ms QT Int : 370 ms P-R-T Axes : 34 -2 27 degrees QTcB Int : 399 ms Normal sinus rhythm Normal ECG When compared with ECG of 20-Oct-2018 15:04, QT has shortened Referred By: Dirk Bowen Electronically Signed By: FRANCOISE TORRES
[2025-09-24 09:50] LABS: MANUAL DIFF FLAG NO
--- OUTSIDE RECORDS SUMMARY | 2025-09-24 10:41 | XMS_ITS | Patient Health Record ---
Author Organization [facility] Address [address] [place] [address] Care Team Providers Care Dust Sampler Name Role Phone Loretta Larkin Primary Care Provider UnavailJairo Valadez Unavailable [phone] Allergies Allergen (clinical drug ingredient) Drug/Non Drug Allergy documented on EMR Reaction Allergy Type Onset Date Status banana allergenic extract bananas (uncoded) Unknown Allergy Active Latex Gloves Unknown Drug Allergy Acti ve Reason For Referral No Information Medications Medication SIG (Take, Route, Frequency, Duration) Notes Start Date End Date Status Dicyclomine HCl 10 MG Capsule TAKE 1-2 CAPSULES BY MOUTH EVERY 6 HOURS NEEDED FOR ABDOMINAL CRAMPS/DIARRHEA 30 DAYS; Duration: 90 Active Ondansetron 4 MG Tablet Disintegrating 1 tablet on the tongue and allow to dissolve Orally Every 4 to 6 hours as needed for nausea; Duration: 30 day(s) 10/04/2023 Active Ventolin HFA Active Immunizations Vaccine Route Administration Date Status Comme nts Influenza Unknown 09/21/2019 Administered Social History Social History Additional Details Category Social Info Options Details Miscellaneous: Marital status: Significan t other 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 [employer] 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 Section Notes: Nonsmoker; no sig alcohol Nonsmoker; no sig alcohol Nonsmoker; no sig alcohol Nonsmoker; no sig alcohol Nonsmoker; no sig alcohol Nonsmoker; no sig alcohol Problems Problem Type SNOMED Code ICD Code Onset Dates Problem Status W/U Status Risk Notes Problem Diarrhea (00382810) Diarrhea (R19.7) Active confirmed Problem Irritable bowel syndrome with diarrhea (450963067) Irritable bowel syndrome with diarrhea (K58.0) Active confirmed Problem Family History of Cancer of Colon (Situation) (721092539) Family history of colon cancer (Z80.0) Active confirmed Problem Lymphocytic colitis (9919094684) Lymphocytic colitis (K52.89) Active confirmed Problem Diarrhea of presumed infectious origin (92835379) Diarrhea of presumed infectious origin (R19.7) Active confirmed Problem Acute vomiting (71068051) Acute vomiting (R11.10) Active confirmed Plan Of [...] Insured Coverage Start Date Coverage End Date [employer] [address] [place] [address] [id number] ABNER PATHAK Self - patient is the insured MEDICAID OF [employer] [address] [place] [address] [id number] ABNER PATHAK Self - patient is the insured Medical (General) History Medical History History ICD Code Denies [place],DM,CVA,Lung disease,renal dise ase Miscarriage in 05/2014 Asthma. [...]
--- OUTSIDE RECORDS SUMMARY | 2025-09-24 10:41 | XMS_ITS | Clinical Summary ---
Author Organization Patient Business Ser [facility] Address [address] [place] [address] Care Team Providers Care Licensed Staff Mft Name Role Phone Loretta Larkin MD Primary Care Provider [phone] Encounters Date Type Department Care Team Description 06/29/2025 Telephone Obstetrics and Gynecology - [place] [address] [place] [address] Trevor Lewis CNM 06/26/2025 Telephone Obstetrics and Gynecology - [address] [address] Trevor Lewis CNM from Last 3 Months Surgical History Surgery Date Site/Laterality Comments SECTION PROCEDURE: HISTORICAL DELIVERY BREAST SURGERY Bilateral PROCEDURE: NM BREAST AUGMENTATION WITH IMPLANT Medical History Medical [...] LAB CHEMISTRY METHOD 06/26/2025 9:31 PM EDT [facility] Blood Venous blood specimen / Unknown Venipuncture / Unknown 06/26/2025 3:06 PM EDT 06/26/2025 3:08 PM EDT Narrative [facility] - 06/26/2025 9:31 PM EDT Quantitative HCG Reference Ranges Time after Conception MIU/ML 0.2-1 Week 5-50 1-2 Weeks 50-500 2-3 Weeks 100-5,000 3-4 Weeks 500-10,000 4-5 Weeks 1,000-50,000 5-6 Weeks 10,000-100,000 6-8 Weeks 15,000-200,000 2-3 Months 10,000-100,000 2nd Trimester 1,000-94,000 3rd Trimester 2,500-90,000 Non- Females 1-3 Penny Fontanez CNM LAB BLOOD ORDERABLES Final Re sult [facility] [address] [place] [address], * Pap smear (04/03/2022) 04/03/2022 Narrative HISTORICAL TESTING LAB RESULTING AGENCY - 04/11/2022 4:30 PM EDT [id number] THINPREP PAP, IMAGED: NEGATIVE FOR SQUAMOUS INTRAEPITHELIAL [...] Recently Relevant to Health Maintenance Insurance [facility] PUBLIC [employer] Care Teams Licensed Staff Mft Relationship Specialty Start Date End Date Loretta Larkin MD [address] [place] [address] PCP - General Internal Medicine 01/05/21
[2025-09-24 10:50] LABS: Hematocrit 40.8 % (37.0-47.0); Hemoglobin 13.9 g/dl (12.0-16.0); Imm Gran Abs Auto 0.02 X10*3/uL (0.00-0.03); Imm Gran Pct Auto 0.3 % (0.0-0.4); Lymphocytes Absolute Auto 1.6 X10*3/uL (1.2-4.9); Mean Corpuscular HGB Conc 34.1 g/dl (31.0-35.0); Mean Corpuscular Hemoglobin 32.3 pg (27.0-33.0); Mean Corpuscular Volume 94.9 fL (80.0-98.0); NRBC Abs Auto 0.000 X10*3/uL (0.0-0.012); NRBC Pct Auto 0.0 /100WBC (0.0-0.2); Platelet Count 275 X10*3/uL (160-400); Red Blood Count 4.30 X10*6/uL (4.20-5.50); White Blood Count 6.8 X10*3/uL (4.8-10.8)
[2025-09-24 12:02] LABS: Alanine Aminotransferase 29 U/L (0-31); Albumin Level 5.3 g/dL (3.5-5.0); Alkaline Phosphatase 59 U/L (39-117); Anion Gap 12 (12-20); Aspartate Amino Transferase 22 U/L (5-31); Blood Urea Nitrogen 14 mg/dL (9-16); Calcium 9.9 mg/dL (8.4-10.2); Carbon Dioxide 25 mmol/L (22-29); Chloride 110 mmol/L (96-108); Cholesterol 203 mg/dL (<200); Estimated Glomerular Filt Rate > 60; HDL Cholesterol 44 mg/dL (>40); Iron 126 mcg/dL (30-160); Percent Iron Saturation 36 % (15-50); Potassium 3.6 mmol/L (3.3-5.1); Sodium 143 mmol/L (135-145); Total Iron Binding Capacity 348 mcg/dL (228-428); Total Protein 8.0 g/dL (6.5-8.0); Triglycerides 139 mg/dL (<150); Unsaturated Iron Binding 222 ug/dL
[2025-09-24 12:03] LABS: Ferritin 265 ng/mL (10-122)
[2025-09-24 12:28] LABS: Folate 11.8 ng/mL (> or = 4.0); Vitamin B12 388 pg/mL (200-900)
[2025-09-24 13:56] LABS: Free T4 (Free Thyroxine) 0.93 ng/dL (0.71-1.85)
== END 2025-09-24 09:25 | disposition home or self-care (01) ==
LOC: HO.XRAY 09:24
PROVIDERS: PCP Internal Medicine; Visit Provider Surgery
DX: J45.909 Unspecified asthma, uncomplicated (principal); E66.9 Obesity, unspecified; Z68.35 Body mass index [BMI] 35.0-35.9, adult
CPT/HCPCS: 36415; 71046; 80053; 80061; 82306; 82607; 82728; 82746; 83036; 83525; 83540; 84425; 84439; 84443; 84590; 84630; 85025; 86140; 93005

== ENCOUNTER → 2025-09-24 09:28 | Outpatient (BNV) | payer OTHER, SELFPAY | PROVIDERS: PCP Internal Medicine; Visit Provider Internal Medicine | DX: E66.9 Obesity, unspecified (principal) | CPT/HCPCS: 93010 ==

== ENCOUNTER → 2025-09-24 09:45 | Outpatient (BNV) | payer OTHER, SELFPAY | PROVIDERS: PCP Internal Medicine; Visit Provider Radiology Diagnostic Radiology | DX: E66.9 Obesity, unspecified (principal) | CPT/HCPCS: 71046 ==

== ENCOUNTER 2025-10-21 10:10 | Day surgery (SDC) | payer OTHER, SELFPAY ==
--- OUTSIDE RECORDS SUMMARY | 2025-10-02 06:28 | XMS_ITS | Clinical Summary ---
Author Organization Patient Business Ser [facility] Address [address] [place] [address] Care Team Providers Care Plant Equipment Engineer Name Role Phone Loretta Larkin MD Primary Care Provider [phone] Surgical History Surgery Date Site/Laterality Comments SECTION [...] on file Sexual Orientation Not on file Last Filed Vital Signs Vital Sign Reading [...] Pap Smear 04/03/2025 04/03/2022 COVID-19 Vaccine ( - season) 2025 02/18/2021, 01/28/2021 Influenza Vaccine (#1) [...] Procedure Name Priority Date/Time Associated Diagnosis Comments PAP SMEAR Routine 04/03/2022 from Last 3 Months or Most Recently Relevant to Health Maintenance Results * Pap smear (04/03/2022) 04/03/2022 Narrative HISTORICAL TESTING LAB RESULTING AGENCY - 04/11/2022 4:30 PM EDT [id number] THINPREP PAP, IMAGED: NEGATIVE FOR SQUAMOUS INTRAEPITHELIAL LESION AND MALIGNANCY . REACTIVE CELLULAR CHANGES. BLANKA LIMA , CHICHO(ASCP) (CASE SCREENED 04 10 2022) VIVIANA BROWN M.D. , PATHOLOGIST (CASE ELECTRONICALLY SIGNED 04 11 2022) ADEQUACY: SATISFACTORY ENDOCERVICAL/TRANSFORMATION ZONE COMPONENT PRESENT. SOURCE: THINPREP PAP HPV IF ASCUS, CERVICAL, IMAGED CLINICAL INFORMATION: HPV IF DIAGNOSIS OF ASCUS. , PAP HX NEGATIVE. [Z12.4] us Elyssa Goodman DO LAB CYTOLOGY ORDERABLES Final Result HISTORICAL TESTING LAB RESULTING AGENCY from Last 3 Months or Most Recently Relevant to Health Maintenance Insurance [facility] [employer] Care Teams Plant Equipment Engineer Relationship Specialty Start Date End Date Loretta Larkin MD [address] [facility] [address], [place] PCP - General Internal Medicine 01/05/21
--- NOTE | 2025-10-14 11:48 | HO.ANESPROP2 ---
Documented by User: Karoline Shirley NP 10/14/25 11:49 HPI - Anesthesia Eval Consult details Narrative: 35yo F for Upper Endoscopy PMFSH Active Problems Active Problems: All Active Problems Vitamin B12 deficiency (Acute) Vitamin D deficiency (Acute) Hypothyroidism (Acute) BMI 35.0-35.9,adult (Acute) Obesity (Acute) Ulcerative colitis (Acute) Asthma (Acute) Anxiety and depression (Acute) Past Medical History Medical History Vitamin B12 deficiency Vitamin D deficiency Hypothyroidism BMI 35.0-35.9,adult Abnormal Pap smear of cervix Ulcerative colitis Eczema Asthma Colitis Asthma Family History Family History Mother Hypertension Father Asthma Brother No problems noted. Brother No problems noted. Son No problems noted. Son No problems noted. Son Asthma Autism Daughter ADHD Maternal Aunt Cervical cancer History of breast cancer Maternal Grandmother Cervical cancer Paternal Grandfather Colon cancer Paternal Grandmother Ovarian cancer Surgical History Surgical History Hx of breast augmentation Hx of section Hx of breast augmentation Hx of colonoscopy Previous section Social History Social History Alcohol intake: current Alcohol intake frequency: holidays/special occasions only Alcohol type: wine Patient Tobacco Use Status: Never used Tobacco Use of substances other than those prescribed or required for medical reasons: No Advance Directives: No Advance Directives Information Provided: Yes Sexual orientation: Straight/Heterosexual Gender identity: Female Meds Allergies Allergy/AdvReac Type Severity Reaction Status Date / Time banana (BANANA) Allergy Severe ANAPHYLAXIS Verified 10/21/25 10:31 cantaloupe (CANTALOUPE) Allergy Severe HIVES Verified 10/21/25 10:31 ketorolac (From TORADOL) Allergy Intermediate HIVES Verified 10/21/25 10:31 latex (LATEX) Allergy Mild HIVES Verified 10/21/25 10:31 peach (PEACH) Allergy Mild HIVES Verified 10/21/25 10:31 plum (PLUM) Allergy Mild HIVES Verified 10/21/25 10:31 Home Medications ?Medication ?Instructions ?Recorded ?Confirmed ?Last Taken ?Type cetirizine 10 mg tablet 10 mg PO DAILY 04/20/21 10/21/25 Unknown History epinephrine 0.3 mg/0.3 mL IM 04/20/21 09/23/25 Unknown History injection, auto-injector etonogestrel 68 mg subdermal subdermal 03/07/23 09/23/25 Unknown History implant (Nexplanon) fluticasone propionate 110 2 puff inhalation BID 07/18/23 10/21/25 Unknown History mcg/actuation HFA aerosol inhaler (Flovent HFA) Exam Narrative Narrative: EKG 09/2025 Vent. Rate : 70 BPM Atrial Rate : 70 BPM P-R Int : 148 ms QRS Dur : 74 ms QT Int : 370 ms P-R-T Axes : 34 -2 27 degrees QTcB Int : 399 ms Normal sinus rhythm Normal ECG When compared with ECG of 20-Oct-2018 15:04, QT has shortened Assessment and Plan Assessment Anesthesia Assessment: Chart Reviewed Documented by User: Aracely Quiroz MD 10/21/25 11:38 [facility] Active Problems Active Problems: qAll Active Problems Vitamin B12 deficiency (Acute) Vitamin D deficiency (Acute) Hypothyroidism (Acute) BMI 35.0-35.9,adult (Acute) Obesity (Acute) Ulcerative colitis (Acute) Asthma (Acute) Anxiety and depression (Acute) Past Medical History Medical History Vitamin B12 deficiency Vitamin D deficiency Hypothyroidism BMI 35.0-35.9,adult Abnormal Pap smear of cervix Ulcerative colitis Eczema Asthma Colitis Asthma Family History Family History Mother Hypertension Father Asthma Brother No problems noted. Brother No problems noted. Son No problems noted. Son No problems noted. Son Asthma Autism Daughter ADHD Maternal Aunt Cervical cancer History of breast cancer Maternal Grandmother Cervical cancer Paternal Grandfather Colon cancer Paternal Grandmother Ovarian cancer Surgical History Surgical History Hx of breast augmentation Hx of section Hx of breast augmentation Hx of colonoscopy Previous section History of Problems with Anesthesia: No Social History Social History Alcohol intake: current Alcohol intake frequency: holidays/special occasions only Alcohol type: wine Patient Tobacco Use Status: Never used Tobacco Use of substances other than those prescribed or required for medical reasons: No Advance Directives: No Advance Directives Information Provided: Yes Sexual orientation: Straight/Heterosexual Gender identity: Female Meds Allergies Allergy/AdvReac Type Severity Reaction Status Date / Time banana (BANANA) Allergy Severe ANAPHYLAXIS Verified 10/21/25 10:31 cantaloupe (CANTALOUPE) Allergy Severe HIVES Verified 10/21/25 10:31 ketorolac (From TORADOL) Allergy Intermediate HIVES Verified 10/21/25 10:31 latex (LATEX) Allergy Mild HIVES Verified 10/21/25 10:31 peach (PEACH) Allergy Mild HIVES Verified 10/21/25 10:31 plum (PLUM) Allergy Mild HIVES Verified 10/21/25 10:31 Home Medications ?Medication ?Instructions ?Recorded ?Confirmed ?Last Taken ?Type cetirizine 10 mg tablet 10 mg PO DAILY 04/20/21 10/21/25 Unknown History epinephrine 0.3 mg/0.3 mL IM 04/20/21 09/23/25 Unknown History injection, auto-injector etonogestrel 68 mg subdermal subdermal 03/07/23 09/23/25 Unknown History implant (Nexplanon) fluticasone propionate 110 2 puff inhalation BID 07/18/23 10/21/25 Unknown History mcg/actuation HFA aerosol inhaler (Flovent HFA) Exam Airway Mallampati Class: II TM Dist: >3cm Neck ROM: Full Loose/Missing/Broken Teeth: No Heart: RRR Lungs: CTA Assessment and Plan Assessment Anesthesia Assessment: Anesthesia Plan Discussed Final Anesthetic Review History of Problems with Anesthesia: No NPO: Yes ASA Class: II Final Preanesthetic Review: Meds/Allgs Chart Reviewed, Consent Obtained/Reviewed and Anes Risks/Benef Reviewed Patient Risk: Low Procedure Risk: Intermediate Anesthetic Plan Anesthetic Plan: MAC: Disposition: Standard PACU
[2025-10-21 10:27] VITALS: BMI 33.7
[2025-10-21 10:39] VITALS: BP 106/69; PULSE 81; RESP 18; TEMP 36.4; O2SAT 96
[2025-10-21] MEDS: Lactated Ringers 1,000 ML 80 ML IVCONT (10:48)
[2025-10-21 10:50] LABS: UPreg QC Valid YES
--- NOTE | 2025-10-21 11:51 | MHC.SHP ---
Pre-Procedural Eval Section A - 24 Hr Update-Section A only Date of Service: 10/21/25 The patient is an INPATIENT: No The patient has been examined within 24 hours of the surgical procedure. The History & Physical has been completed within 30 days and I have reviewed it.: No Section B - Complete if H&P > 30 days Chief Complaint: Obesity, unspecified Relevant Family History (Specify if Yes): No Relevant Social History: None Present Medications: None Medical History: No relevant PMH History of Previous Operations: No relevant previous surgery Allergies: Allergies Allergy/AdvReac Type Severity Reaction Status Date / Time banana (BANANA) Allergy Severe ANAPHYLAXIS Verified 10/21/25 10:31 cantaloupe (CANTALOUPE) Allergy Severe HIVES Verified 10/21/25 10:31 ketorolac (From TORADOL) Allergy Intermediate HIVES Verified 10/21/25 10:31 latex (LATEX) Allergy Mild HIVES Verified 10/21/25 10:31 peach (PEACH) Allergy Mild HIVES Verified 10/21/25 10:31 plum (PLUM) Allergy Mild HIVES Verified 10/21/25 10:31 Review of Systems Sugical H&P ROS: Negative: Constitution, Cardiovascular, Respiratory, Neurological, Psychiatric, Hem-Onc, Allergic/Immunologic, Gastrointestinal, Genitourinary, Musculoskeletal, Integumentary, Endocrine and Eyes/Ears/Nose/Throat Exam Surgical H&P Exam: Normal: HEENT, Normal: Heart, Normal: Lungs, Normal: Extremities, Normal: Abdomen, Normal: Skin and Normal: Neurological Plan Diagnosis/Plan: Unchanged (EGD to assess the stomach's anatomy. Risks of bleeding and perforation were discussed with the patient and she is in agreement with the plan.) I have reviewed the history and physical and performed a pertinent physical examination on my patient. No changes have occurred unless specified. Time Spent With Patient Time: Total time managing care of this patient today ____ minutes.
--- NOTE | 2025-10-21 11:54 | P.BOP_ITS ---
Brief Operative Note Date of Service: 10/21/25 Pre-op diagnosis: Obesity Post-op diagnosis: same (& diaphragmatic hernia) Procedure: PROCEDURE DATE: 10/21/2025 PREOPERATIVE DIAGNOSIS: Obesity POSTOPERATIVE DIAGNOSIS: ?Same as above. Moderate size diaphragmatic hernia PROCEDURE: [id number]-yiixkj-mdoorgniughl with biopsies Surgeon: ?Mark Bowen M.D.. Ph.D. Administrative Nursing Supervisor: None ? Anesthesia: IV sedation Estimated blood loss: ?Minimal FINDINGS AND PROCEDURE: ? OPERATIVE INDICATIONS: ?The patient is a 35 year old female known to me who is interested in bariatric surgery. Based on this information I recommended an upper endoscopy to evaluate the patient's symptoms. Risks and complications of the surgery were discussed with the patient in advance particularly the possibility of perforation or bleeding that may require surgical intervention. The patient understood the risks and was in agreement with the plan. ? PROCEDURE: After informed consent was obtained by the patient, the patient was ?transferred to the Operating Room and was placed in the supine position.? After successful induction of IV sedation, a mouth block was inserted and the patient was placed in the left lateral decubitus position. An upper endoscopy was performed next, the oropharynx and esophagus appeared within the normal limits. There was a moderate size hiatal hernia. The z-line was smooth. Two biopsies were obtained from the distal esophagus 2-3 cm proximal to the GE junction and two additional biopsies from the GE junction. The stomach was entered and it appeared to be of normal size. There was no gastritis. There was no stricture or ulcer. A biopsy was obtained from the gastric fundus and the antrum. No significant bleeding was noted from any of the biopsy sites. Retroflexion of the scope confirmed the presence of a hiatal hernia with a enlarged defect. The scope was then advanced into the duodenum all the way to the 4th portion, which appeared to be normal as well. At that point the duodenum ?and the stomach were decompressed and the scope was withdrawn from the patient's mouth. The patient extubated and was transferred in stable condition to the Recovery Room for further care. I was present and performed all steps of the procedure. There were no residents to assist with this case. Mark Bowen M.D., Ph.D. Surgeon: Dikr Bowen MD Anesthesia: MAC Was an Administrative Nursing Supervisor used for this Procedure?: No Estimated blood loss (mL): 0 IV fluids (mL): 400 Urine output (mL): 0 (No Gonzales to record output) Pathology: other (1) antrum x1, 2) fundus x1, 3) GE junction x2, 4) distal esophagus x2) Condition: stable Disposition: PACU
[2025-10-21 12:15] VITALS: BP 90/59; PULSE 102; RESP 16; TEMP 36.1; O2SAT 97
[2025-10-21 12:30] VITALS: BP 95/57; PULSE 83; RESP 16; O2SAT 97
[2025-10-21 12:35] VITALS: BP 108/66; PULSE 84; RESP 16; TEMP 36.6; O2SAT 97
== END 2025-10-21 12:58 | disposition home or self-care (01) ==
PROVIDERS: Nurse Practitioner; PCP Internal Medicine; Visit Provider Surgery
PROC: 0DJ08ZZ Inspection of Upper Intestinal Tract, Via Natural or Artificial Opening Endoscopic (ICD-10-PCS; CPT 43235; principal; 2025-10-21 12:10)
DX: E66.9 Obesity, unspecified (principal); Z68.35 Body mass index [BMI] 35.0-35.9, adult; K44.9 Diaphragmatic hernia without obstruction or gangrene; J45.909 Unspecified asthma, uncomplicated; K52.9 Noninfective gastroenteritis and colitis, unspecified; L30.9 Dermatitis, unspecified; Z91.040 Latex allergy status; Z88.5 Allergy status to narcotic agent; Z91.018 Allergy to other foods; Z79.899 Other long term (current) drug therapy; Z98.890 Other specified postprocedural states
CPT/HCPCS: 43239; 81025; 88305; 88313; 88342; J2704

== ENCOUNTER → 2025-10-21 10:10 | Outpatient (BNV) | payer OTHER, SELFPAY | PROVIDERS: PCP Internal Medicine; Visit Provider Surgery | DX: E66.812 Obesity, class 2 (principal); Z68.35 Body mass index [BMI] 35.0-35.9, adult; K44.9 Diaphragmatic hernia without obstruction or gangrene | CPT/HCPCS: 43239 ==